=== PATIENT | male | born 1930 | race Caucasian/White ===

== ENCOUNTER 2017-01-26 11:04 | Emergency (ER) | payer MEDICARE, OTHER ==
--- NOTE | 2017-01-26 11:40 | EDM.PDOC ---
ED HPI GENERAL MEDICAL PROBLEM - General Chief Complaint: General Stated Complaint: NOT STEADY ON FEET Time Seen by Provider: 01/26/17 11:20 Source of Information: Reports: Patient History Limitations: Reports: No limitations - History of Present Illness INITIAL COMMENTS - FREE TEXT/NARRATIVE: Patient presents for evaluation and treatment of unsteadiness. He states over the last 2 days he felt unsteady on his feet. His states that he has been running into things. He reports associated lightheadedness. He does wear glasses but has not noticed any vision changes. He denies any chest pain, abdominal pain, headache, nausea, vomiting, fevers, chills, diarrhea or any bloody stools. He was ill with a cold a couple weeks ago but this has since resolved. He reports tinnitus but states is chronic and has not noticed any change. He denies any earaches. - Related Data Allergies Allergy/AdvReac Type Severity Reaction Status Date / Time penicillin V Allergy Hives Verified 01/27/17 07:52 Home Meds: Home Meds Clopidogrel Bisulfate [Clopidogrel] 75 mg PO DAILY PRN 04/12/15 [History] Diltiazem HCl [Diltiazem 24Hr ER] 120 mg PO DAILY 04/12/15 [History] Levothyroxine Sodium [Synthroid] 175 mg PO ASDIRECTED 04/12/15 [History] Metoprolol Tartrate [Lopressor] 12.5 mg PO BID 04/12/15 [History] Simvastatin 10 mg PO BEDTIME PRN 04/12/15 [History] Betamethasone Valerate 45 gm TP DAILY #45 gram 08/21/16 [Rx] Past Medical History HEENT History: Reports: Hard of hearing, Impaired vision Other HEENT History: BILATERAL SENSORINEURAL HEARING LOSS Cardiovascular History: Reports: Afib, High cholesterol, Hypertension, [place], Stents, Other (see below) Other Cardiovascular History: [place] WITH STENTS PLACED 2005 Other Respiratory History: COUGH, URI, DYSPNEA Gastrointestinal History: Reports: Pancreatitis Other Gastrointestinal History: ABDOMINAL DISTENSION Musculoskeletal History: Reports: Amputation Other Neuro History: DIZZINESS INTERMITTENTLY Endocrine/Metabolic History: Reports: Hypothyroidism Other Endocrine/Metabolic History: HYPOTHYROIDISM, Dermatologic History: Reports: Eczema Other Dermatologic History: HX OF HAND LACERATION, PRURITIS, SEBORRHEIC DERMATITIS - Infectious Disease History Infectious Disease History: Reports: Chicken pox, Measles, Mumps - Past Surgical History HEENT Surgical History: Reports: Tonsillectomy GI Surgical History: Reports: Appendectomy, Cholecystectomy, Hernia repair/other Other Musculoskeletal Surgeries/Procedures:: RIGHT REVERSE SHOULDER, R TKA, BILATERAL HIP REPLACEMENTS. Patient had a fall and had a severe subcutaneous hematoma right flank. This became secondarily infected about 14 after injury and required open drainage and secondary intention healing. He was on a wound VAC for approximately 2-1/2 months. Social & Family History - Family History Family Medical History: Noncontributory - Tobacco Use Smoking Status *Q: Never Smoker Second Hand Smoke Exposure: No - Caffeine Use Caffeine Use: Reports: Coffee, Tea Other Caffeine Use: up to 4-5 cups per day on most days - Recreational Drug Use Recreational Drug Use: No Drug Use in Last 12 Months: No - Living Situation & Occupation Living situation: Reports: , with spouse Occupation: retired ED ROS GENERAL - Review of Systems Review Of Systems: See Below Constitutional: Denies: fever, chills HEENT: Denies: Ear pain, Vision change Respiratory: Reports: Shortness of Breath ("little bit") Cardiovascular: Denies: Chest pain GI/Abdominal: Denies: Abdominal pain, Diarrhea, Hematochezia, Melena, Nausea, Vomiting Neurological: Reports: Weakness (reports weakness), Gait Disturbance (reports feeling unsteady and isrunning into things). Denies: Headache, Numbness, Tingling ED EXAM, GENERAL - Physical Exam Exam: See Below Exam Limited By: No limitations General Appearance: alert, WD/WN, no apparent distress Eye Exam: bilateral eye: EOMI, PERRL Ears: normal external exam, normal canal, hearing grossly normal, normal TMs Ear Exam: bilateral ear: TM normal Nose: normal inspection Throat/Mouth: Normal inspection, Normal lips, Normal oropharynx, Normal voice, No airway compromise Neck: normal inspection, full range of motion Respiratory/Chest: no respiratory distress, lungs clear, normal breath sounds Cardiovascular: normal peripheral pulses, regular rate, rhythm, systolic murmur (grade 2 - reports he had an echo preformed several years ago, sees cardiology) Peripheral Pulses: 2+: radial (L), radial (R), posterior tibial (L), posterior tibial (R), dorsalis pedis (L), dorsalis pedis (R) GI/Abdominal: soft, non tender Neurological: alert, oriented, CN II-XII intact, normal cognition, abnormal gait (unsteady, utilizing a cane), other (pattern filer is 5/5 bilaterally, dorsiflesxion 5/5 bilaterally, plantarflexion 5/5 bilaterally; smile is symmetrical, able to wrinkle forehead, no slurred speech, no drift to legs or arms; NIHSS is 0 ) Psychiatric: normal affect, normal mood Skin Exam: Warm, Dry, Normal color EKG INTERPRETATION EKG Date: 01/26/17 Time: 11:45 Rhythm: NSR Rate (beats/min): 57 [place]: normal P-wave: present QRS: normal ST-T: normal QT: normal Comparison: no change EKG Interpretation Comments: NSR at 57 bpm. Q waves in V1 and V2 - old anteroseptal VA. Decreased voltage in limb leads. Borderline p-r interval . Reviewed by myself and Dr. Darby. Course - Vital Signs Last Recorded V/S: Last Vital Signs Temp 36.3 C 01/26/17 11:11 Pulse 67 01/26/17 13:20 Resp 16 01/26/17 13:20 BP 164/82 H 01/26/17 13:20 Pulse Ox 97 01/26/17 13:20 - Orders/Labs/Meds Orders: Active Orders 24 hr Category Date Time Status Blood Glucose Check, Bedside [RC] ONETIME Care 01/26/17 11:36 Active Cardiac Monitoring [RC] . DIRECTED Care 01/26/17 11:36 Active EKG 12 Lead [EKG Documentation Completion] [RC] STAT Care 01/26/17 11:36 Active Chest 1V Frontal [CR] Stat Exams 01/26/17 11:38 Taken Labs: Laboratory Tests 01/26/17 01/26/17 01/26/17 Range/Units 11:39 11:53 11:53 WBC 6.70 (4.23-9.07) K/mm3 RBC 4.20 L (4.63-6.08) M/mm3 Hgb 12.5 L (13.7-17.5) gm/L Hct 36.5 L (40.1-51.0) % MCV 86.9 (79.0-92.2) fl MCH 29.8 (25.7-32.2) pg MCHC 34.2 (32.2-35.5) g/dl RDW Std Deviation 39.8 (35.1-43.9) fL Plt Count 193 (163-337) K/mm3 MPV 9.5 (9.4-12.3) fl Neut % (Auto) 56.2 (34.0-67.9) % Lymph % (Auto) 21.6 L (21.8-53.1) % [place] % (Auto) 10.0 (5.3-12.2) % Eos % (Auto) 11.5 H (0.8-7.0) Baso % (Auto) 0.6 (0.1-1.2) % Neut # (Auto) 3.76 (1.78-5.38) K/mm3 Lymph # (Auto) 1.45 (1.32-3.57) K/mm3 [place] # (Auto) 0.67 (0.30-0.82) K/mm3 Eos # (Auto) 0.77 H (0.04-0.54) K/mm3 Baso # (Auto) 0.04 (0.01-0.08) K/mm3 Sodium 138 (136-145) mEq/L Potassium 5.2 H (3.5-5.1) mEq/L Chloride 103 (98-107) mEq/L Carbon Dioxide 25 (21-32) mEq/L Anion Gap 15.2 H (5-15) BUN 24 H (7-18) mg/dL Creatinine 1.4 H (0.7-1.3) mg/dL Est Cr Clr Drug Dosing 40.34 mL/min Estimated GFR (MDRD) 48 (>60) mL/min BUN/Creatinine Ratio 17.1 (14-18) Glucose 118 H (83-115) mg/dL POC Glucose 119 H (83-110) mg/dL Calcium 9.4 (8.5-10.1) mg/dL Magnesium 2.1 (1.8-2.4) mg/dl Total Bilirubin 0.8 (0.2-1.0) mg/dL AST 14 L (15-37) U/L ALT 24 (16-63) U/L Alkaline Phosphatase 45 L (46-116) U/L Troponin I < 0.017 (0.00-0.056) ng/mL Total Protein 7.1 (6.4-8.2) g/dl Albumin 3.6 (3.4-5.0) g/dl Globulin 3.5 gm/dL Albumin/Globulin Ratio 1.0 (1-2) TSH 3rd Generation 3.185 (0.358-3.74) uIU/mL Urine Color (Yellow) Urine Appearance (Clear) Urine pH (5.0-8.0) Ur Specific [place] (1.005-1.030) Urine Protein (Negative) Urine Glucose (UA) (Negative) Urine Ketones (Negative) Urine Occult Blood (Negative) Urine Nitrite (Negative) Urine Bilirubin (Negative) Urine Urobilinogen (0.2-1.0) Ur Leukocyte Esterase (Negative) Urine RBC (0-5) /hpf Urine WBC (0-5) /hpf Ur Epithelial Cells (0-5) /hpf Urine Bacteria (FEW) /hpf Urine Mucus (FEW) /hpf 01/26/17 Range/Units 12:05 WBC (4.23-9.07) K/mm3 RBC (4.63-6.08) M/mm3 Hgb (13.7-17.5) gm/L Hct (40.1-51.0) % MCV (79.0-92.2) fl MCH (25.7-32.2) pg MCHC (32.2-35.5) g/dl RDW Std Deviation (35.1-43.9) fL Plt Count (163-337) K/mm3 MPV (9.4-12.3) fl Neut % (Auto) (34.0-67.9) % Lymph % (Auto) (21.8-53.1) % [place] % (Auto) (5.3-12.2) % Eos % (Auto) (0.8-7.0) Baso % (Auto) (0.1-1.2) % Neut # (Auto) (1.78-5.38) K/mm3 Lymph # (Auto) (1.32-3.57) K/mm3 [place] # (Auto) (0.30-0.82) K/mm3 Eos # (Auto) (0.04-0.54) K/mm3 Baso # (Auto) (0.01-0.08) K/mm3 Sodium (136-145) mEq/L Potassium (3.5-5.1) mEq/L Chloride (98-107) mEq/L Carbon Dioxide (21-32) mEq/L Anion Gap (5-15) BUN (7-18) mg/dL Creatinine (0.7-1.3) mg/dL Est Cr Clr Drug Dosing mL/min Estimated GFR (MDRD) (>60) mL/min BUN/Creatinine Ratio (14-18) Glucose (83-115) mg/dL POC Glucose (83-110) mg/dL Calcium (8.5-10.1) mg/dL Magnesium (1.8-2.4) mg/dl Total Bilirubin (0.2-1.0) mg/dL AST (15-37) U/L ALT (16-63) U/L Alkaline Phosphatase (46-116) U/L Troponin I (0.00-0.056) ng/mL Total Protein (6.4-8.2) g/dl Albumin (3.4-5.0) g/dl Globulin gm/dL Albumin/Globulin Ratio (1-2) TSH 3rd Generation (0.358-3.74) uIU/mL Urine Color Yellow (Yellow) Urine Appearance Clear (Clear) Urine pH 6.5 (5.0-8.0) Ur Specific [place] 1.015 (1.005-1.030) Urine Protein Trace H (Negative) Urine Glucose (UA) Negative (Negative) Urine Ketones Negative (Negative) Urine Occult Blood Negative (Negative) Urine Nitrite Negative (Negative) Urine Bilirubin Negative (Negative) Urine Urobilinogen 0.2 (0.2-1.0) Ur Leukocyte Esterase Negative (Negative) Urine RBC Not seen (0-5) /hpf Urine WBC 0-5 (0-5) /hpf Ur Epithelial Cells 0-5 (0-5) /hpf Urine Bacteria Few (FEW) /hpf Urine Mucus Not seen (FEW) /hpf - Radiology Interpretation Free Text/Narrative:: chest xray shows no acute intrathoracic process. CT of the head without contrast impression per Dr. Robertson: 1. Senescent change as described. 2. Increased density within the right vertebral and basilar artery most likely representing slow blood flow but difficult to completely exclude thrombosis. MRI study would be needed to exclude this possibility if clinically indicated. 3. No acute parenchymal abnormality is appreciated. CT Results Date: 01/26/17 - Re-Assessments/Exams Free Text/Narrative Re-Assessment/Exam: 01/26/17 12:45 Labs returned. White blood cell count is 6.70, hemoglobin is 12.5 and platelets are 193. TSH is normal at 3.185. Troponin is normal at less than 0.017. sodium is 138, potassium is 5.2 chloride is 103. Anion gap is 15.2. Creatinine is 1.4. Glucose is 118. UA is negative for any glucose, ketones, nitrates, leukocytes or blood. Discussed CT with Dr. Darby. [place] we can manage the patient outpatient. Unable to get MRI today, since it is the weekend. Will order MRA outpatient. 01/26/17 13:03 Discussed test results with the patient. Will have radiology contact him Saturday morning to schedule an MRI and have him followup with his primary care for results. Discussed safety with the patient. He lives at home with his . He does feel safe going home. I encouraged him to rest and take it easy. Return to the ER should his symptoms change or worsen. Departure - Departure Time of Disposition: 13:05 Disposition: Home, Self-Care 01 Condition: fair Clinical Impression: Unsteady Referrals: Valentina Dimas CYTOLOGY TECHNOLOGIST [Primary Care Provider] - Forms: ED Department Discharge Additional Instructions: MRA outpatient ordered. If you do not hear from them Saturday, call [phone] and ask to speak with the radiology department. Follow-up with Valentina after MRA for results. Please return to the ER should your symptoms change or worsen. - My Orders Last 24 Hours: My Active Orders 01/26/17 11:36 Blood Glucose Check, Bedside [RC] ONETIME Cardiac Monitoring [RC] . DIRECTED EKG 12 Lead [EKG Documentation Completion] [RC] STAT 01/26/17 11:38 Chest 1V Frontal [CR] Stat - Assessment/Plan Last 24 Hours: My Active Orders 01/26/17 11:36 Blood Glucose Check, Bedside [RC] ONETIME Cardiac Monitoring [RC] . DIRECTED EKG 12 Lead [EKG Documentation Completion] [RC] STAT 01/26/17 11:38 Chest 1V Frontal [CR] Stat
--- NOTE | 2017-01-26 12:29 | CT ---
CT Technique: Multiple axial sections through the brain were obtained. Intravenous contrast was not utilized. Comparison: Previous MRI brain of 03/16/[address] exam of 05/23/13. Findings: Ventricles along the basal cisterns and sulci convexities are moderately prominent. Diminished density is noted within the periventricular white matter which is compatible with small vessel ischemic demyelination change. 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 Several minimal cortical calcifications are seen which are felt to be incidental. No other abnormal parenchymal densities are seen. Increased density is noted within the right vertebral vessel and basilar artery. This most likely is due to slow vascular flow but difficult to completely exclude thrombosis. Bone window settings were reviewed which shows no acute calvarial abnormality. Mild areas of mucosal thickening seen within the sphenoid and ethmoid sinuses. Impression: 1. Senescent change as described above. 2. Increased density within the right vertebral and basilar artery most likely representing slow blood flow but difficult to completely exclude thrombosis. MRI study would be needed to exclude this possibility if clinically indicated. 3. No acute parenchymal abnormality is appreciated. Diagnostic code #3
[2017-01-26 13:24] VITALS: BP 164/82
--- NOTE | 2017-01-27 16:19 | CR ---
Chest: Portable view of the chest was obtained. Comparison: Previous chest x-ray of 08/21/16. Heart size and mediastinum are normal. Lungs are clear. Right shoulder prosthesis is seen. Bony structures are osteopenic. Impression: 1. Nothing acute is appreciated on portable chest x-ray. Diagnostic code #1
== END 2017-01-26 13:20 | disposition home or self-care (01) ==
LOC: JD.ED 11:04
DX: R26.81 Unsteadiness on feet (principal); H90.5 Unspecified sensorineural hearing loss; I25.2 Old myocardial infarction; I10 Essential (primary) hypertension; Z95.5 Presence of coronary angioplasty implant and graft; I48.91 Unspecified atrial fibrillation; E78.00 Pure hypercholesterolemia, unspecified; E03.9 Hypothyroidism, unspecified; Z96.651 Presence of right artificial knee joint; Z96.643 Presence of artificial hip joint, bilateral; Z79.899 Other long term (current) drug therapy; Z88.0 Allergy status to penicillin
CPT/HCPCS: 36415; 70450; 70450-26; 71010; 71010-26; 80053; 81001; 82962; 83735; 84443; 84484; 85025; 93005; 99283; 99285-25

== ENCOUNTER 2017-01-27 07:45 | Emergency (ER) | payer MEDICARE, OTHER ==
--- NOTE | 2017-01-27 08:32 | EDM.PDOC ---
ED HPI NEURO - General Chief Complaint: Neurological Problem Stated Complaint: [facility] Time Seen by Provider: 01/27/17 07:48 Source of Information: Reports: Patient, EMS History Limitations: Reports: No limitations - History of Present Illness INITIAL COMMENTS - FREE TEXT/NARRATIVE: The patient was brought in by [facility] for bilateral leg weakness, balance issues and a fall. The patient was here yesterday for the same and a complete work up was done that included an EKG, labs, UA and CT of his head. The only abnormality found was on his CT it showed increased density within the right vertebral and basilar artery most likely representing slow blood flow but difficult to completely exclude thrombosis. MRI study would be needed to exclude this possibility if clinically indicated. An outpatient MRA of his brain was ordered for the next couple of days. He was sent home and got worse. He got up to use the bathroom at 3am and he says his legs would not work and he fell. He did not hit his head or hurt his neck. He has no headache, chest pain, shortness of breath, abdominal pain, fever, chills, cough, or troubles urinating or having a bowel movement. He has no hip pain or wrist pain from the fall. He has no numbness in his groin area or low back pain. Timing/Duration: Reports: Day(s): (3) Location (Neuro Complaint): Reports: lower extremity, left, lower extremity, right Quality (Neuro Complaint): Reports: weakness Severity: severe Improves with: Reports: None Worsens with: Reports: None Context, General: Reports: Activity Associated Symptoms: Reports: no other symptoms - Related Data Allergies/ADRs: Allergies Allergy/AdvReac Type Severity Reaction Status Date / Time penicillin V Allergy Hives Verified 01/27/17 07:52 Home Meds: Home Meds Clopidogrel Bisulfate [Clopidogrel] 75 mg PO DAILY PRN 04/12/15 [History] Diltiazem HCl [Diltiazem 24Hr ER] 120 mg PO DAILY 04/12/15 [History] Levothyroxine Sodium [Synthroid] 175 mg PO ASDIRECTED 04/12/15 [History] Metoprolol Tartrate [Lopressor] 12.5 mg PO BID 04/12/15 [History] Simvastatin 10 mg PO BEDTIME PRN 04/12/15 [History] Betamethasone Valerate 45 gm TP DAILY #45 gram 08/21/16 [Rx] Past Medical History HEENT History: Reports: Hard of hearing, Impaired vision Other HEENT History: BILATERAL SENSORINEURAL HEARING LOSS Cardiovascular History: Reports: Afib, High cholesterol, Hypertension, [place], Stents, Other (see below) Other Cardiovascular History: [place] WITH STENTS PLACED 2005 Other Respiratory History: COUGH, URI, DYSPNEA Gastrointestinal History: Reports: Pancreatitis Other Gastrointestinal History: ABDOMINAL DISTENSION Musculoskeletal History: Reports: Amputation Other Neuro History: DIZZINESS INTERMITTENTLY Endocrine/Metabolic History: Reports: Hypothyroidism Other Endocrine/Metabolic History: HYPOTHYROIDISM, Dermatologic History: Reports: Eczema Other Dermatologic History: HX OF HAND LACERATION, PRURITIS, SEBORRHEIC DERMATITIS - Infectious Disease History Infectious Disease History: Reports: Chicken pox, Measles, Mumps - Past Surgical History HEENT Surgical History: Reports: Tonsillectomy GI Surgical History: Reports: Appendectomy, Cholecystectomy, Hernia repair/other Other Musculoskeletal Surgeries/Procedures:: RIGHT REVERSE SHOULDER, R TKA, BILATERAL HIP REPLACEMENTS. Patient had a fall and had a severe subcutaneous hematoma right flank. This became secondarily infected about 14 after injury and required open drainage and secondary intention healing. He was on a wound VAC for approximately 2-1/2 months. Social & Family History - Family History Family Medical History: Noncontributory - Tobacco Use Smoking Status *Q: Never Smoker Second Hand Smoke Exposure: No - Caffeine Use Caffeine Use: Reports: None Other Caffeine Use: up to 4-5 cups per day on most days - Recreational Drug Use Recreational Drug Use: No Drug Use in Last 12 Months: No - Living Situation & Occupation Living situation: Reports: , with spouse Occupation: retired ED ROS GENERAL - Review of Systems Review Of Systems: See Below Constitutional: Reports: no symptoms HEENT: Reports: No symptoms Respiratory: Reports: No Symptoms Cardiovascular: Reports: No symptoms Endocrine: Reports: no symptoms GI/Abdominal: Reports: No symptoms : Reports: no symptoms Musculoskeletal: Reports: other (Bilateral leg weakness) Skin: Reports: no symptoms Neurological: Reports: Weakness (bilateral leg weakness) ED EXAM, NEURO - Physical Exam Exam: See Below Exam Limited By: No limitations General Appearance: alert, no apparent distress Ears: normal external exam Nose: normal inspection Head Exam: atraumatic, normocephalic Neck: normal inspection Respiratory/Chest: no respiratory distress, lungs clear, normal breath sounds Cardiovascular: regular rate, rhythm, no edema, no murmur GI/Abdominal: soft, non tender, no organomegaly Neurological: alert, oriented x 3, other (Bilateral leg weakness with abnormal heal to null with both legs. He still has good sensation and pulses. Good sensation to the groin area.) Back Exam: normal inspection Course - Vital Signs Last Recorded V/S: Last Vital Signs Temp 98 F 01/27/17 07:49 Pulse 68 01/27/17 07:49 Resp 14 01/27/17 07:49 BP 143/76 H 01/27/17 07:49 Pulse Ox 100 01/27/17 07:49 - Re-Assessments/Exams Free Text/Narrative Re-Assessment/Exam: 01/27/17 08:[address] findings and his exam and the fact that he is worse, he may need an MRI done today and neurology consult. I called [facility] and talked with Dr Champagne and he accepted the patient to the ER. Hopefully then can get an MRI done. I will send him by ambulance due to the increased weakness possible CVA versus a peripheral nerve issue such as guillan barre. Departure - Departure Time of Disposition: 08:40 Disposition: DC/Tfer to Acute Hospital 02 Condition: fair Clinical Impression: Bilateral leg weakness, Balance disorder Fall Qualifiers: Encounter type: initial encounter Qualified Code(s): W19.XXXA - Unspecified fall, initial encounter Forms: ED Department Discharge
[2017-01-27 08:53] VITALS: BP 159/79
== END 2017-01-27 08:55 ==
LOC: JD.ED 07:45
DX: R29.898 Other symptoms and signs involving the musculoskeletal system (principal); R26.89 Other abnormalities of gait and mobility; W19.XXXA Unspecified fall, initial encounter; I25.2 Old myocardial infarction; I10 Essential (primary) hypertension; E78.00 Pure hypercholesterolemia, unspecified; E03.9 Hypothyroidism, unspecified; Z90.49 Acquired absence of other specified parts of digestive tract; Z98.890 Other specified postprocedural states; Z79.02 Long term (current) use of antithrombotics/antiplatelets; Z79.899 Other long term (current) drug therapy; Z88.0 Allergy status to penicillin
CPT/HCPCS: 99284; 99285

== ENCOUNTER 2017-09-18 11:37 | Observation (INO) | payer MEDICARE, OTHER ==
[2017-09-18] MEDS ORDERED: Lidocaine 1% with EPINEPHrine 1:100,000 20 ML MDV INJECT ONE (11:39)
--- NOTE | 2017-09-18 12:40 | CT ---
Head CT Technique: Multiple axial sections through the brain were obtained. Intravenous contrast was not utilized. Findings: Comparison: Previous head CT exam of 09/18/17. Findings: Ventricles along the basal cisterns and sulci over the convexities are mildly prominent. Minimal diminished density is noted within the periventricular white matter compatible with small vessel ischemic demyelination change. No other abnormal parenchymal densities are seen. Vascular calcification is seen within the carotid siphon and within the vertebral vessels. Opacified right maxillary sinus is seen Diffuse soft tissue swelling and hematoma is identified within the right frontal scalp and around the right periorbital region. Bone window settings were reviewed which shows no acute calvarial abnormality. Impression: 1. Diffuse soft tissue swelling within the right forehead as well as hematoma. Soft tissue swelling and hematoma also noted around the right orbit. 2. Mild senescent change as described above. No acute intracranial abnormality is seen. Diagnostic code #3
--- NOTE | 2017-09-18 12:42 | CT ---
CT facial bones Technique: Multiple axial sections through the facial bones were obtained. Reconstructed coronal and sagittal images were reviewed. Findings: Soft tissue swelling and hematoma as well as a small amount of soft tissue air is noted within the right forehead and within the right periorbital region. Right and left globes are symmetric in size. Extraocular muscles are symmetric. No retrobulbar abnormality is seen. Opacified right maxillary sinus is seen which is likely chronic. No facial bone fracture is identified. Degenerative change is noted within both temporomandibular joints with joint space narrowing and mild osteophytes. Incidental massiel bullosa noted within the left middle nasal turbinate. Nasal septal deviation is also seen. Mild mucosal thickening is noted within the ethmoid sinuses. Impression: 1. Soft tissue swelling/soft tissue hematoma and soft tissue air within the right forehead and within the right periorbital region. 2. Other findings which are felt to be incidental as described above. 3. No facial bone fracture is identified. Diagnostic code #3
--- NOTE | 2017-09-18 12:42 | CT ---
CT cervical spine Technique: Multiple axial sections through the cervical spine were obtained from above C1 inferiorly to the top of T2. Reconstructed sagittal and coronal images were reviewed. Comparison: Prior CT cervical spine exam of 04/15/13. Findings: Lucent fracture line is identified through the dens. No displacement is seen at this time. Fracture also identified on both sides of the posterior C1 ring. No displacement is seen. Disc space narrowing is seen throughout the cervical spine with diffuse anterior and posterior osteophytes. Diffuse degenerative apophyseal change is seen. No additional fracture is seen. Scattered areas of neural foraminal narrowing are seen. Impression: 1. Nondisplaced fractures involving the posterior ring on both sides of C1. Additional nondisplaced fracture involving the dens of C2. Both these are unstable fractures. 2. Diffuse degenerative change as noted above. Degenerative change is fairly stable from previous CT exam. Diagnostic code #5
[2017-09-18] MEDS ORDERED: Sodium Chloride 0.9% 10 ML Syringe FLUSH PRN (14:14)
--- NOTE | 2017-09-18 18:15 | EDM.PDOC ---
ED HPI GENERAL MEDICAL PROBLEM - General Chief Complaint: Head Injury Stated Complaint: [facility] Time Seen by Provider: 09/18/17 11:38 Source of Information: Reports: Patient, EMS, Provider History Limitations: Reports: No Limitations - History of Present Illness INITIAL COMMENTS - FREE TEXT/NARRATIVE: The patient said he stepped wrong the concrete and he fell and hit the right side of his head. He had no LOC. He has a laceration above his right eye with ecchymosis and edema. He had neck pain. He went to the clinic in [place] and they put him in a c-collar and sent him hear. When he arrived he was alert and orientated and complained of a headache and neck pain. He denies numbness or weakness. He has no chest pain, shortness of breath, abdominal pain, arm pain or leg pain. His tetanus he thinks is up to date. He denies hip pain. He can see good out of his right eye. He did not think he got lightheaded or dizzy when he fell. Onset: Sudden Duration: Hour(s): Location: Reports: Face Quality: Reports: Sharp Severity: Moderate Improves with: Reports: None Worsens with: Reports: None Associated Symptoms: Reports: Headaches. Denies: Confusion, Chest Pain, Cough, Fever/Chills, Nausea/Vomiting Right Anterior Head Pain Score (Numeric/FACES): 3 - Related Data Allergies Allergy/AdvReac Type Severity Reaction Status Date / Time penicillin V Allergy Hives Verified 09/18/17 18:31 Home Meds: Home Meds Clopidogrel Bisulfate [Clopidogrel] 75 mg PO DAILY 04/12/15 [History] Diltiazem HCl [Diltiazem 24Hr ER] 120 mg PO DAILY 04/12/15 [History] Levothyroxine Sodium [Synthroid] 175 mg PO DAILY 04/12/15 [History] Metoprolol Tartrate [Lopressor] 12.5 mg PO BID 04/12/15 [History] Co Q-10 With Pierpont 3 1 tab PO DAILY 09/18/17 [History] Multivitamin [Multivitamins] 1 tab PO DAILY 09/18/17 [History] Past Medical History HEENT History: Reports: Hard of Hearing, Impaired Vision Other HEENT History: BILATERAL SENSORINEURAL HEARING LOSS Cardiovascular History: Reports: Afib, High Cholesterol, Hypertension, [place], Stents, Other (See Below) Other Cardiovascular History: MN WITH STENTS PLACED 2006 Other Respiratory History: COUGH, URI, DYSPNEA Gastrointestinal History: Reports: Pancreatitis Other Gastrointestinal History: ABDOMINAL DISTENSION Musculoskeletal History: Reports: Amputation Other Neuro History: DIZZINESS INTERMITTENTLY Endocrine/Metabolic History: Reports: Hypothyroidism Other Endocrine/Metabolic History: HYPOTHYROIDISM, Dermatologic History: Reports: Eczema Other Dermatologic History: HX OF HAND LACERATION, PRURITIS, SEBORRHEIC DERMATITIS - Infectious Disease History Infectious Disease History: Reports: Chicken Pox, Measles, Mumps - Past Surgical History Cardiovascular Surgical History: Reports: Coronary Artery Stent GI Surgical History: Reports: Appendectomy, Cholecystectomy, Hernia Repair/Other Other Musculoskeletal Surgeries/Procedures:: RIGHT REVERSE SHOULDER, R TKA, BILATERAL HIP REPLACEMENTS. Patient had a fall and had a severe subcutaneous hematoma right flank. This became secondarily infected about 14 after injury and required open drainage and secondary intention healing. He was on a wound VAC for approximately 2-1/2 months. Social & Family History - Family History Family Medical History: Noncontributory - Tobacco Use Smoking Status *Q: Never Smoker Second Hand Smoke Exposure: No - Caffeine Use Caffeine Use: Reports: Coffee Other Caffeine Use: 2-3 cups per day - Alcohol Use Days Per Week of Alcohol Use: 3 Number of Drinks Per Day: 1 Total Drinks Per Week: 3 - Recreational Drug Use Recreational Drug Use: No Drug Use in Last 12 Months: No - Living Situation & Occupation Living situation: Reports: , with Spouse Occupation: Retired ED ROS GENERAL - Review of Systems Review Of Systems: See Below Constitutional: Reports: No Symptoms HEENT: Reports: Other (Edema and laceration above right eye) Respiratory: Reports: No Symptoms Cardiovascular: Reports: No Symptoms Endocrine: Reports: No Symptoms GI/Abdominal: Reports: No Symptoms : Reports: No Symptoms Musculoskeletal: Reports: No Symptoms Skin: Reports: No Symptoms ED EXAM, HEAD INJURY - Physical Exam Exam: See Below Exam Limited By: No Limitations General Appearance: Alert, No Apparent Distress Head: Other (Moderate edema above the right eye with a 3cm laceration) Eyes: Bilateral Eye: EOMI, PERRL Ears: Normal External Exam Nose: Normal Inspection Throat/Mouth: Normal Inspection Neck: Normal Alignment, Normal Inspection, Tenderness Respiratory: No Respiratory Distress, Lungs Clear, Normal Breath Sounds Cardiovascular: Regular Rate, Rhythm, No Edema, No Murmur GI/Abdominal Exam: Soft, Non-Tender, No Organomegaly, No Mass Back Exam: Normal Inspection Extremities: Normal Inspection ED LACERATION/WOUND & ARANZA PROC - Laceration/Wound Repair Right Forehead Lac/wound length in cm: 3 Appearance: Subcutaneous, Linear, Irregular Anesthetic Type: Local Local Anesthesia - Lidocaine (Xylocaine): 1% with EPI Skin Prep: Saline Exploration/Debridement/Repair: Wound Explored, In a Bloodless Field, Explored to Base Closed with: Sutures Suture Size: 4-0 # of Sutures: 7 Suture Type: Nylon, Interrupted, Simple Tetanus Status Addressed: Yes Complications: No EKG INTERPRETATION EKG Date: 09/18/17 Time: 14:41 Rhythm: NSR Rate (Beats/Min): 70 [place]: Normal P-Wave: Present QRS: Normal ST-T: Normal QT: Normal Course - Vital Signs Last Recorded V/S: Last Vital Signs Temp 97.7 F 09/18/17 16:54 Pulse 73 09/18/17 16:54 Resp 15 09/18/17 16:54 BP 114/76 09/18/17 16:54 Pulse Ox 95 09/18/17 16:54 - Orders/Labs/Meds Orders: Active Orders 24 hr Category Date Time Status Cardiac Monitoring [RC] . DIRECTED Care 09/18/17 14:14 Active EKG Documentation Completion [RC] STAT Care 09/18/17 14:15 Active Peripheral IV Care [RC] . DIRECTED Care 09/18/17 14:15 Active Sodium Chloride 0.9% [Saline Flush] Med 09/18/17 14:14 Active 10 ml FLUSH ASDIRECTED PRN Peripheral IV Insertion Adult [OM.PC] Stat Oth 09/18/17 14:14 Ordered Medication Orders Diltiazem HCl (Cardizem Cd) 120 mg PO DAILY [facility] Levothyroxine Sodium (Levothyroxine) 175 mcg PO ACBREAKFAST [facility] Metoprolol Succinate (Toprol Xl) 12.5 mg PO DAILY [facility] Simvastatin (Zocor) 10 mg PO BEDTIME [facility] Sodium Chloride (Saline Flush) 10 ml FLUSH ASDIRECTED PRN PRN Reason: Keep Vein Open Last Admin: 09/18/17 14:27 Dose: 10 ml Labs: Laboratory Tests 09/18/17 09/18/17 09/18/17 Range/Units 14:18 15:00 15:00 WBC Cancelled 13.70 H Corrected WBC Cancelled RBC Cancelled 4.39 L Hgb Cancelled 13.1 L Hct Cancelled 38.6 L MCV Cancelled 87.9 MCH Cancelled 29.8 MCHC Cancelled 33.9 RDW Std Deviation Cancelled 43.5 Plt Count Cancelled 239 MPV Cancelled 9.6 Neut % (Auto) Cancelled 86.0 H Lymph % (Auto) Cancelled 6.3 L Russell % (Auto) Cancelled 6.3 Eos % (Auto) Cancelled 0.9 Baso % (Auto) Cancelled 0.2 Neut # (Auto) Cancelled 11.78 H Lymph # (Auto) Cancelled 0.86 L Russell # (Auto) Cancelled 0.86 H Eos # (Auto) Cancelled 0.13 Baso # (Auto) Cancelled 0.03 Manual Slide Review Cancelled Normal smear Sodium 135 L (136-145) mEq/L Potassium 4.3 (3.5-5.1) mEq/L Chloride 99 (98-107) mEq/L Carbon Dioxide 25 (21-32) mEq/L Anion Gap 15.3 H (5-15) BUN 28 H (7-18) mg/dL Creatinine 1.3 (0.7-1.3) mg/dL Est Cr Clr Drug Dosing 42.64 mL/min Estimated GFR (MDRD) 52 (>60) mL/min BUN/Creatinine Ratio 21.5 H (14-18) Glucose 142 H (83-115) mg/dL Calcium 9.3 (8.5-10.1) mg/dL Total Bilirubin 1.0 (0.2-1.0) mg/dL AST 21 (15-37) U/L ALT 35 (16-63) U/L Alkaline Phosphatase 50 (46-116) U/L Troponin I 0.024 (0.00-0.056) ng/mL Total Protein 7.7 (6.4-8.2) g/dl Albumin 3.8 (3.4-5.0) g/dl Globulin 3.9 gm/dL Albumin/Globulin Ratio 1.0 (1-2) Meds: Medications Generic Name Dose Route Start Last Admin Trade Name Freq PRN Reason Stop Dose Admin Diltiazem HCl 120 mg 09/19/17 09:00 Cardizem Cd PO DAILY [facility] Levothyroxine Sodium 175 mcg 09/19/17 06:00 Levothyroxine PO [facility] Metoprolol Succinate 12.5 mg 09/19/17 09:00 Toprol Xl PO DAILY [facility] Simvastatin 10 mg 09/18/17 21:00 Zocor PO BEDTIME BLAN[facility] Sodium Chloride 10 ml 09/18/17 14:14 09/18/17 14:27 Saline Flush FLUSH 10 ml ASDIRECTED PRN Administration Keep Vein Open Discontinued Medications Generic Name Dose Route Start Last Admin Trade Name Odette PRN Reason Stop Dose Admin Lidocaine/Epinephrine 20 ml 09/18/17 11:39 09/18/17 12:23 Xylocaine 1% With Epinephrine 1:100,000 INJECT 09/18/17 11:40 20 ml ONETIME ONE Administration - Re-Assessments/Exams Free Text/Narrative Re-Assessment/Exam: 09/18/17 18:[address] of his head, cervical spine and facial bones. The CT of his facial bones shows soft tissue swelling/soft tissue hematoma and soft tissue aire within the right forehead and within the right periorbital region. No facial bone fracture is identified. The CT of her head shows diffuse soft tissue swelling within the right forehead as well as hematoma. Soft tissue swelling and hematoma also noted around the right orbit. Mild senescnet changes. NO acute intracranial abnormality is seen. The CT of his facial bones show nondisplaced fractures involving the posterior ring on both sides of C1. Additional nondisplaced fracture involving the dens of C2. Both these are unstable fractures. Diffuse degenerative change. Degenerative change is fairly stable form previous CT exam. I called [facility] and talked with Dr Fish and she was able to see the CTs. She wanted the patient in a [facility] and she can see him in the clinic next week. The patient and his did not feel comfortable coming home. I called Dr Espinoza and he agreed to admit the patient. I sutures his laceration. I also ordered a EKG and it showed a NSR with no acute changes. 09/18/17 18:39 His labs show a elevated WBC of 13.7. His Hgb was low at 13.1. His Na was low at 135. His glucose was 142. His troponin was negative. Departure - Departure Time of Disposition: 18:45 Disposition: Refer to Observation Condition: Fair Clinical Impression: Fall Qualifiers: Encounter type: initial encounter Qualified Code(s): W19.XXXA - Unspecified fall, initial encounter Laceration of face Qualifiers: Encounter type: initial encounter Qualified Code(s): S01.81XA - Laceration without foreign body of other part of head, initial encounter Contusion of forehead Qualifiers: Encounter type: initial encounter Qualified Code(s): S00.83XA - Contusion of other part of head, initial encounter C1 cervical fracture Qualifiers: Encounter type: initial encounter Fracture type: closed Fracture morphology: posterior arch Fracture alignment: nondisplaced Qualified Code(s): S12.031A - Nondisplaced posterior arch fracture of first cervical vertebra, initial encounter for closed fracture C2 cervical fracture Qualifiers: Encounter type: initial encounter Fracture type: closed Fracture morphology: type II dens Fracture alignment: nondisplaced Qualified Code(s): S12.112A - Nondisplaced Type II dens fracture, initial encounter for closed fracture - Discharge Information - My Orders Last 24 Hours: My Active Orders 09/18/17 14:14 Cardiac Monitoring [RC] . DIRECTED Sodium Chloride 0.9% [Saline Flush] 10 ml FLUSH ASDIRECTED PRN Peripheral IV Insertion Adult [OM.PC] Stat 09/18/17 14:15 EKG Documentation Completion [RC] STAT Peripheral IV Care [RC] . DIRECTED - Assessment/Plan Last 24 Hours: My Active Orders 09/18/17 14:14 Cardiac Monitoring [RC] . DIRECTED Sodium Chloride 0.9% [Saline Flush] 10 ml FLUSH ASDIRECTED PRN Peripheral IV Insertion Adult [OM.PC] Stat 09/18/17 14:15 EKG Documentation Completion [RC] STAT Peripheral IV Care [RC] . DIRECTED
[2017-09-18] MEDS: Acetaminophen 325 MG Tab PO PRN (20:55)
[2017-09-18] MEDS ORDERED: Simvastatin 10 MG Tab PO SCH (21:00)
[2017-09-19] MEDS: Acetaminophen 325 MG Tab PO PRN ×2 (04:21→10:22)
--- NOTE | 2017-09-19 07:24 | HP ---
DATE OF ADMISSION: 09/18/2017 CHIEF COMPLAINT: Fall with neck pain. HISTORY OF PRESENT ILLNESS: This 87-year-old gentleman who lives in [place], [place] evidently was walking down the stairs today, actually one stair which he missed, fell and landed on essentially anterolateral aspect of his forehead sustaining a laceration. There was no evidence of loss of consciousness. He got up and because of the bleeding came to the hospital here. In the course of his workup in the emergency room, the laceration was closed. There was a moderate amount of bleeding because of his medically-induced hypocoagulability by clopidogrel. He had the incision repaired by the ER physician with a moderate amount of difficulty. He was then sent for x-rays and a CT of the cervical spine was performed which demonstrate nondisplaced fractures involving the posterior ring on both sides of C1 and additional nondisplaced fracture involving the dens of the C2, both of these which are unstable fractures. He was placed in a cervical collar shortly thereafter. CT of the head revealed diffuse soft tissue swelling in the right forehead area as well as the hematoma and described mild senescent changes. No acute intracranial possibilities found. He also underwent a maxillary facial sinus evaluation by CT, which demonstrated again the soft tissue swelling and hematoma in the area of the right forehead and had no other findings other than that and there was no sign of any facial bone fracture. The patient was evaluated, and since the patient lives in [place] and even though he did not sustain any intracranial injury or loss of consciousness, it was felt wiser by myself and the ER physician as well as the patient's that he be kept here overnight for observation and he is admitted for a 24-hour observation. ALLERGIES: He is insisting he is allergic to penicillin. CURRENT MEDICATIONS: Levothyroxine 175 mg daily, diltiazem 120 mg p.o. daily, and Clopidogrel bisulfate 75 mg p.o. daily. He has taken that today. Simvastatin 10 mg at bedtime, metoprolol 12.5 mg p.o. b.i.d. PAST SURGICAL HISTORY: He has had multiple procedures including hernia repairs, shoulder repairs. He has had right shoulder repair twice. He has had a biliary tree problem with gallstones. DICTATION ENDS HERE. MMODAL /[id number]
[2017-09-19] MEDS ORDERED: Metoprolol Succinate 25 MG Tab.ER PO SCH (09:00)
[2017-09-19] MEDS ORDERED: Diltiazem 120 MG Cap.CD PO SCH (09:00)
--- NOTE | 2017-09-19 13:25 | HP ---
DATE OF ADMISSION: 09/18/2017 ADDENDUM PHYSICAL EXAMINATION: GENERAL: An alert and oriented 87-year-old gentleman with a large bandage on his right forehead, covering the area of laceration. EYES: Pupils are equal and reactive to light and accommodation. VITAL SIGNS: Stable and normal. NECK: There is a neck brace in place covering his C1 and C2 cervical fractures, which have been reviewed with a neurosurgeon in [place], and he has an appointment to see her in the week. CHEST: Clear to auscultation. HEART: Rhythm is regular. No murmurs are heard. ABDOMEN: Soft. No masses and no tenderness. MUSCULOSKELETAL: No sign of any extremity trauma. Good strength in all major muscle groups. NEUROLOGIC: Intact to gross exam. ASSESSMENT: At this point is fall from steps with no significant neuro trauma; laceration of forehead; and fractures of the C1 ring, nondisplaced, and of the C2 ring, dens, which is not displaced. MMODAL /[id number]
[2017-09-19 13:26] VITALS: BP 134/84
[2017-09-19] MEDS ORDERED: Metoprolol Tartrate 25 MG Tab PO SCH (21:00)
--- NOTE | 2017-09-20 01:29 | DISCH ---
ADMISSION DATE: 09/18/2017 DISCHARGE DATE: 09/19/2017 DISCHARGE DIAGNOSES: 1. Right frontal forehead laceration secondary to fall. 2. Nondisplaced ring fractures C1 and dens fracture C2, unstable, but not displaced. COURSE IN HOSPITAL: The patient sustained a fall where he missed a step and fell landing on his forehead. He was on clopidogrel with a bleeding problem and eventually brought from [place] to our facility. He was repaired in the emergency room and his was concerned about him going home, so we kept him overnight on 24-hour hold. He remained stable throughout the night. He was a little sore in the area of the laceration. His dressing is off now and he is not bleeding. He is alert and oriented to time, person, and place and has good bilateral grasps and is able to ambulate in a walker. He has an appointment to see a neurosurgeon in [place] sometime next week, which he does not know what time it is, but that has been arranged. He has a cervical collar in place and understands that should not under any circumstances be removed until he sees the neurosurgeon. He understands all this and so he will be discharged to home today. FINAL DIAGNOSIS: DISCHARGE MEDICATIONS: DIET: ACTIVITY: FOLLOW-UP: CONDITION ON DISCHARGE: ANDREY /[id number]
[2017-09-20] MEDS ORDERED: Multivitamins,Therapeutic Tab PO SCH (09:00)
[2017-09-20] MEDS ORDERED: Clopidogrel 75 MG Tab PO SCH (09:00)
[2017-09-20] MEDS ORDERED: OMEGA PO SCH (09:00)
[2017-09-20] MEDS ORDERED: Diltiazem 120 MG Cap.CD PO SCH (09:00)
[2017-09-20] MEDS ORDERED: CO Q10 PO SCH (09:00)
== END 2017-09-19 13:10 | disposition home or self-care (01) ==
LOC: JD.ED 11:37 → JD.MS 15:52 → UNDOADMOB 15:52 → JD.MS 15:53
PROVIDERS: ADMIT Surgery; ATTEND Surgery
DX: S01.81XA Laceration without foreign body of other part of head, initial encounter (principal); S12.031A Nondisplaced posterior arch fracture of first cervical vertebra, initial encounter for closed fracture; S12.112A Nondisplaced Type II dens fracture, initial encounter for closed fracture; H90.5 Unspecified sensorineural hearing loss; I48.91 Unspecified atrial fibrillation; E78.00 Pure hypercholesterolemia, unspecified; I10 Essential (primary) hypertension; I25.2 Old myocardial infarction; E03.9 Hypothyroidism, unspecified; W19.XXXA Unspecified fall, initial encounter; Z79.01 Long term (current) use of anticoagulants; Z79.899 Other long term (current) drug therapy; Z88.0 Allergy status to penicillin; Z88.8 Allergy status to other drugs, medicaments and biological substances; Z95.5 Presence of coronary angioplasty implant and graft; Z96.643 Presence of artificial hip joint, bilateral; Z90.49 Acquired absence of other specified parts of digestive tract; Z98.890 Other specified postprocedural states
CPT/HCPCS: 12013; 36415; 70450; 70486; 72125; 80053; 84484; 85025; 93005; 99285; A9270; J7050; 93010; G0378

== ENCOUNTER 2017-09-25 15:17 | Observation (INO) | payer MEDICARE, OTHER ==
[2017-09-25] MEDS ORDERED: Sodium Chloride 0.9% 10 ML Syringe FLUSH PRN (17:07)
[2017-09-25] MEDS ORDERED: HYDROmorphone 0.5 MG/0.5 ML Syringe IVPUSH STA (17:36)
--- NOTE | 2017-09-25 18:30 | PCM.HP ---
H&P History of Present Illness - General Date of Service: 09/25/17 Source of Information: Patient, Old Records, Provider, RN History Limitations: Reports: No Limitations - History of Present Illness Initial Comments - Free Text/Narative: Richard Negrete is an 87 yo male who presents to our ED today after falling in [place] and injuring his left leg. 8/10 pain on ED visit. ED provider reports patient was in [place] to have a neurosurgeon visit and fell while at a restaurant. The patient was recently admitted for a fall at home on concrete. This initial fall resulted in a C1 and C2 fracture. The patient was placed in a c-collar and admitted for monitoring by general surgery due to unsteadiness. He did well and was discharged home. He was instructed to follow-up with neurosurgery. The patient reports his neurosurgery appointment will well today and no concerns were noted. He did have an MRI, however this was before this recent fall. The patient did report that he had difficulty after the fall with bearing weight and the neurosurgeon told him to follow-up with the ER here in [place] so he would be closer to home. When he presented to ED was unable to bear weight without extreme pain. He denies LOC or hitting his head. Denies headache, nausea, vomiting, fever, chills, chest pain, shortness of breath, cough, or abdominal pain. He reports that he lost his footing and denies any syncopal episode or other medical causes which led to his fall. He had a very mild fever in the ED were temperature 100.6. Pulse is 83. Respirations 18. Blood pressure 163/77. Pulse ox 99%. EKG was obtained and interpreted by the ED provider as a normal sinus rhythm at a rate of 93 bpm. No ectopy was noted. Labs are obtained: He does have a slight white count 11.85. Hemoglobin was low at 11.9. Hematocrit low at 35.3. Platelet count 236 ,000. Neutrophils were elevated at 70.4%. Sodium was good at 138. Potassium 4.6. Chloride 104. Carbon accident 25. Anion gap 13.6. BUN elevated at 27. Creatinine high at 1.4. EGFR is 48. Glucose is high at 140. Calcium 9.5. Total bilirubin 0.9. Liver enzymes looked good with AST at 24, ALT at 34, alkaline phosphatase of 50. Troponin was negative at less than 0.017. Albumin was good at 3.7. He was given 0.5 mg Dilaudid IV push. An x-ray was obtained of the left hip and pelvis. Dr. Robertson did review it with the ED provider and it was determined he has a nondisplaced fracture of the greater trochanter on the left hip. Dr. Javed, orthopedic surgeon [employer] did review the x-ray as well and agreed is a nondisplaced fracture. He recommended only conservative treatment. He carries a history of: Macular degeneration, A-fib, HLD, HTN, HI with stent placement 2005, arthritis, recent fall with fracture of his C1 and C2 vertebrae - c-collar in place, CVA, depression, hypothyroidism, and eczema. Of note: His surgical history is positive for right reverse shoulder arthroplasty, right TKA , and bilateral [place]. He was never a smoker. He was subsequently admitted to the medical floor on observation status. His CODE STATUS is DNR\DNI. His primary care provider is STUART Mandujano, at the [facility]. Left Hip Pain Score (Numeric/FACES): 1 - Related Data Allergies/Adverse Reactions: Allergies Allergy/AdvReac Type Severity Reaction Status Date / Time penicillin V Allergy Hives Verified 09/18/17 18:31 Home Medications: Home Meds Clopidogrel Bisulfate [Clopidogrel] 75 mg PO DAILY 04/12/15 [History] Diltiazem HCl [Diltiazem 24Hr ER] 120 mg PO DAILY 04/12/15 [History] Levothyroxine Sodium [Synthroid] 175 mcg PO DAILY 04/12/15 [History] Metoprolol Tartrate [Lopressor] 12.5 mg PO BID 04/12/15 [History] Co Q-10 With [place] 3 1 tab PO DAILY 09/18/17 [History] Multivitamin [Multivitamins] 1 tab PO DAILY 09/18/17 [History] Past Medical History HEENT History: Reports: Hard of Hearing, Impaired Vision Other HEENT History: BILATERAL SENSORINEURAL HEARING LOSS Cardiovascular History: Reports: Afib, High Cholesterol, Hypertension, HI, Stents, Other (See Below) Other Cardiovascular History: HI WITH STENTS PLACED 2005 Respiratory History: Reports: None Other Respiratory History: COUGH, URI, DYSPNEA Gastrointestinal History: Reports: Pancreatitis Other Gastrointestinal History: ABDOMINAL DISTENSION Genitourinary History: Reports: None Musculoskeletal History: Reports: Amputation Neurological History: Reports: CVA Other Neuro History: DIZZINESS INTERMITTENTLY Psychiatric History: Reports: None Endocrine/Metabolic History: Reports: Hypothyroidism Other Endocrine/Metabolic History: HYPOTHYROIDISM, Hematologic History: Reports: None Immunologic History: Reports: None Oncologic (Cancer) History: Reports: None Dermatologic History: Reports: Eczema Other Dermatologic History: HX OF HAND LACERATION, PRURITIS, SEBORRHEIC DERMATITIS - Infectious Disease History Infectious Disease History: Reports: Chicken Pox, Measles, Mumps - Past Surgical History Cardiovascular Surgical History: Reports: Coronary Artery Stent GI Surgical History: Reports: Appendectomy, Cholecystectomy, Hernia Repair/Other Male Surgical History: Reports: None Other Musculoskeletal Surgeries/Procedures:: RIGHT REVERSE SHOULDER, R TKA, BILATERAL HIP REPLACEMENTS. Patient had a fall and had a severe subcutaneous hematoma right flank. This became secondarily infected about 14 after injury and required open drainage and secondary intention healing. He was on a wound VAC for approximately 2-1/2 months. Oncologic Surgical History: Reports: None Social & Family History - Family History Family Medical History: Noncontributory - Tobacco Use Smoking Status *Q: Never Smoker Second Hand Smoke Exposure: No - Caffeine Use Caffeine Use: Reports: Coffee Other Caffeine Use: 2-3 cups per day - Alcohol Use Days Per Week of Alcohol Use: 3 Number of Drinks Per Day: 1 Total Drinks Per Week: 3 - Recreational Drug Use Recreational Drug Use: No Drug Use in Last 12 Months: No - Living Situation & Occupation Living situation: Reports: , with Spouse Occupation: Retired H&P Review of Systems - Review of Systems: Review Of Systems: See Below General: Reports: No Symptoms. Denies: Fever, Chills, Malaise, Weakness, Fatigue, Diaphoresis HEENT: Reports: No Symptoms. Denies: Ear Pain, Eye Pain, Headaches, Hearing Changes, Post Nasal Drip, Sore Throat, Vertigo, Visual Changes Pulmonary: Reports: No Symptoms. Denies: Shortness of Breath, Wheezing, Pleuritic Chest Pain, Cough, Sputum Cardiovascular: Reports: No Symptoms. Denies: Chest Pain, Palpitations, Dyspnea on Exertion, Edema, Lightheadedness Gastrointestinal: Reports: No Symptoms. Denies: Abdominal Pain, Constipation, Diarrhea, Difficulty Swallowing, Distension, Nausea, Vomiting Genitourinary: Reports: No Symptoms. Denies: Dysuria, Frequency, Burning, Pain , Urgency Musculoskeletal: Reports: Neck Pain (10/30), Joint Pain (left hip pain - absent now but worsens with movement. ). Denies: Shoulder Pain, Arm Pain, Back Pain, Hand Pain, Leg Pain, Foot Pain, Joint Swelling, Muscle Pain, Muscle Stiffness Skin: Reports: No Symptoms Psychiatric: Reports: No Symptoms. Denies: Confusion, Depression, Mood Lability , Anxiety, Agitation, Hallucinations Neurological: Reports: No Symptoms. Denies: Confusion, Dizziness, Headache, Numbness, Syncope, Tingling, Trouble Speaking, Weakness, Change in Speech Hematologic/Lymphatic: Reports: No Symptoms Immunologic: Reports: No Symptoms Exam - Exam Exam: See Below - Vital Signs Vital Signs: Last Vital Signs Temp 98.6 F 09/25/17 15:42 Pulse 88 09/25/17 15:42 Resp 20 09/25/17 15:42 BP 160/92 H 09/25/17 15:42 Pulse Ox 98 09/25/17 15:42 Weight: 180 lb - Exam Quality Assessment: DVT Prophylaxis General: Alert, Oriented, Cooperative. No: Mild Distress HEENT: Conjunctiva Clear, EACs Clear, EOMI, Hearing Intact, Mucosa Moist & [place] , Nares Patent, Normal Nasal Septum, Posterior Pharynx Clear, Other (bruising to right face and forehead that is healing. ), PERRLA Neck: Supple, Trachea Midline, Other (C-collar in place. ) Lungs: Clear to Auscultation, Normal Respiratory Effort Cardiovascular: Regular Rate, Regular Rhythm, Systolic Murmur GI/Abdominal Exam: Normal Bowel Sounds, Soft, Non-Tender, No Organomegaly, No Distention, No Abnormal Bruit, No Mass, Pelvis Stable (Male) Exam: Deferred Rectal (Males) Exam: Deferred Back Exam: Normal Inspection, Full Range of Motion Extremities: Normal Inspection, No Pedal Edema, Normal Capillary Refill, Leg Pain (upon palpation of left hip ), Limited Range of Motion Peripheral Pulses: 3+: Radial (L), Radial (R), Posterior Tibial (L), Posterior Tibial (R), Dorsalis Pedis (L), Dorsalis Pedis (R) Skin: Warm, Dry, Intact Neurological: Cranial Nerves Intact (Grossly), Strength Equal Bilateral, Sensation Intact Neuro Extensive - Mental Status: Alert, Oriented x3, Normal Mood/Affect, Normal Cognition, Memory Intact Neuro Extensive - Motor, Sensory, Reflexes: CN II-XII Intact (Grossly) Psychiatric: Alert, Normal Affect, Normal Mood - Patient Data Result Diagrams: 09/25/17 17:20 09/25/17 17:20 *Q Meaningful Use (ADM) - VTE *Q VTE Criteria *Q: - Stroke *Q Stroke Criteria *Q: - AMI *Q AMI Criteria *Q: - Problem List (1) Hip fracture SNOMED Code(s): 588096514 ICD Code: S72.009A - FRACTURE OF UNSP PART OF NECK OF UNSP FEMUR, INIT Status: Acute Priority: High Current Visit: Yes Qualifiers: Encounter type: initial encounter Fracture type: closed Laterality: left Qualified Code(s): S72.002A - Fracture of unspecified part of neck of left femur, initial encounter for closed fracture (2) Fall SNOMED Code(s): 9015853 ICD Code: W19.XXXA - UNSPECIFIED FALL, INITIAL ENCOUNTER Status: Acute Priority: High Current Visit: Yes Qualifiers: Encounter type: initial encounter Qualified Code(s): W19.XXXA - Unspecified fall, initial encounter (3) C1 cervical fracture SNOMED Code(s): 037891613 ICD Code: S12.000A - UNSP DISP FX OF FIRST CERVICAL VERTEBRA, INIT FOR CLOS FX Status: Acute Priority: Medium Current Visit: Yes Qualifiers: Encounter type: subsequent encounter Fracture type: closed Fracture morphology: posterior arch Fracture alignment: nondisplaced Fracture healing : with routine healing Qualified Code(s): S12.031D - Nondisplaced posterior arch fracture of first cervical vertebra, subsequent encounter for fracture with routine healing (4) C2 cervical fracture SNOMED Code(s): 324216743 ICD Code: S12.100A - UNSP DISP FX OF SECOND CERVICAL VERTEBRA, INIT FOR CLOS FX Status: Acute Priority: Medium Current Visit: Yes Qualifiers: Encounter type: subsequent encounter Fracture type: closed Fracture morphology: type II dens Fracture alignment: nondisplaced Fracture healing: with routine healing Qualified Code(s): S12.112D - Nondisplaced Type II dens fracture, subsequent encounter for fracture with routine healing (5) Contusion of forehead SNOMED Code(s): 331624487 ICD Code: S00.83XA - CONTUSION OF OTHER PART OF HEAD, INITIAL ENCOUNTER Status: Acute Priority: Medium Current Visit: Yes Qualifiers: Encounter type: subsequent encounter Qualified Code(s): S00.83XD - Contusion of other part of head, subsequent encounter (6) CKD (chronic kidney disease) stage 3, GFR 30-59 ml/min SNOMED Code(s): 117757894 ICD Code: N18.3 - CHRONIC KIDNEY DISEASE, STAGE 3 (MODERATE) Status: Chronic Priority: Medium Current Visit: Yes Problem List Initiated/Reviewed/Updated: Yes Orders Last 24hrs: Active Orders 24 hr Category Date Time Status Heart Healthy Diet [DIET] Diet 09/26/17 Breakfast Active Medication Orders Sodium Chloride (Saline Flush) 10 ml FLUSH ASDIRECTED PRN PRN Reason: Keep Vein Open Last Admin: 09/25/17 17:41 Dose: 10 ml Assessment/Plan Comment:: I/P: Acute: Fracture of left hip -Left hip pain after fall in [place] -Pain worsens when bearing weight -X-ray in ED interpreted by Dr. Robertson shows nondisplaced fracture at the greater trochanter of the left hip -Dr. Cardozo contacted by ED provider and her suggests conservative management -Pain medications as ordered -PT/OT -Follow-up with orthopedics after discharge -Of note: He is on clopidogrel Prior fx/o C1 and C2 vertebrae, contusion of head -2/2 fall at home -was hospitalized for this -stable -Was seen by neurosurgery today after fall -MRI was obtained before fall -No concerns noted -He has f/u set up with neurosurgery already -C-collar remains in place -Continue current treatment plan Chronic: CKD - baseline appears to be creatinine of 1.3-1.4 and eGFR of 48-52. He is at baseline. hx/o HI with stent placement - continue blood thinners hx/o CVA that affected his balance depression - stable hypothyroidism - home meds eczema macular degeneration A-fib - home meds HLD HTN - home meds Plan: Admit to medical floor on observation status CM/SW for discharge planning PT/OT Other orders as indicated above Routine AM labs Home medications as ordered DVT/PE prophylaxis: SCDs and home clopidogrel Code Status: DNR/DNI. His PCP is STUART Mandujano, at [facility]
--- NOTE | 2017-09-25 19:28 | EDM.PDOC ---
ED HPI GENERAL MEDICAL PROBLEM - General Chief Complaint: Neurological Problem Stated Complaint: CANT STAND OR WALK Time Seen by Provider: 09/25/17 15:43 Source of Information: Reports: Patient, Family History Limitations: Reports: No Limitations - History of Present Illness INITIAL COMMENTS - FREE TEXT/NARRATIVE: The patient presents with left hip pain. He fell last week at home on concrete and hit his head. He was seen here and he had a contusion to his forehead with a laceration and a fracture of C1 and C2. I talked the the neurosurgeon at [facility] and she wanted him in a c-collar and she will see him next week. He was admitted to our hospital the night of the fall because he was unsteady when he got up. He did good and he was discharged. He did well and today he went to [facility] and had an MRI. He went to eat after and when they were leaving the restaurant, he stepped wrong and fall and landed on his left hip. He has pain in the hip and putting weight on it makes it worse. He has no headache. He saw the neurosurgeon after and she recommended coming to out ER to get checked. They came here and were seen. He denies fever, chills, cough, chest pain, shortness of breath, abdominal pain, nausea or vomiting. He said he lost his footing. Onset: Sudden Duration: Hour(s): Location: Reports: Lower Extremity, Left (Hip) Quality: Reports: Sharp Severity: Moderate Improves with: Reports: Immobilization Worsens with: Reports: Movement Context: Reports: Activity (Fell while walking in a restaurant) Associated Symptoms: Reports: No Other Symptoms Left Hip Pain Score (Numeric/FACES): 3 - Related Data Allergies Allergy/AdvReac Type Severity Reaction Status Date / Time penicillin V Allergy Hives Verified 09/18/17 18:31 Home Meds: Home Meds Clopidogrel Bisulfate [Clopidogrel] 75 mg PO DAILY 04/12/15 [History] Diltiazem HCl [Diltiazem 24Hr ER] 120 mg PO DAILY 04/12/15 [History] Levothyroxine Sodium [Synthroid] 175 mcg PO DAILY 04/12/15 [History] Metoprolol Tartrate [Lopressor] 12.5 mg PO BID 04/12/15 [History] Co Q-10 With [place] 3 1 tab PO DAILY 09/18/17 [History] Multivitamin [Multivitamins] 1 tab PO DAILY 09/18/17 [History] Past Medical History HEENT History: Reports: Hard of Hearing, Impaired Vision, Macular Degeneration Other HEENT History: BILATERAL SENSORINEURAL HEARING LOSS Cardiovascular History: Reports: Afib, High Cholesterol, Hypertension, ID, Stents, Other (See Below) Other Cardiovascular History: ID WITH STENTS PLACED 2005 Respiratory History: Reports: None, SOB Other Respiratory History: COUGH, URI, DYSPNEA Gastrointestinal History: Reports: Pancreatitis Other Gastrointestinal History: peritonitis in 89 Genitourinary History: Reports: None Musculoskeletal History: Reports: Arthritis, Fracture, Other (See Below) Other Musculoskeletal History: fx of C1-C2 after initial fall Neurological History: Reports: CVA Other Neuro History: last january-affected balance. Psychiatric History: Reports: Depression Endocrine/Metabolic History: Reports: Hypothyroidism Other Endocrine/Metabolic History: HYPOTHYROIDISM, Hematologic History: Reports: Blood Transfusion(s) Immunologic History: Reports: None Oncologic (Cancer) History: Reports: None Dermatologic History: Reports: Eczema Other Dermatologic History: HX OF HAND LACERATION to right hand (1979), PRURITIS , SEBORRHEIC DERMATITIS - Infectious Disease History Infectious Disease History: Reports: Chicken Pox, Measles, Mumps - Past Surgical History Head Surgeries/Procedures: Reports: None HEENT Surgical History: Reports: None Cardiovascular Surgical History: Reports: Coronary Artery Stent Respiratory Surgical History: Reports: None GI Surgical History: Reports: Appendectomy, Cholecystectomy, Hernia Repair/Other Male Surgical History: Reports: None Endocrine Surgical History: Reports: None Neurological Surgical History: Reports: None Other Musculoskeletal Surgeries/Procedures:: RIGHT REVERSE SHOULDER, R TKA, BILATERAL HIP REPLACEMENTS. Patient had a fall and had a severe subcutaneous hematoma right flank. This became secondarily infected about 14 days after injury and required open drainage and secondary intention healing. He was on a wound VAC for approximately 2-1/2 months. Oncologic Surgical History: Reports: None Social & Family History - Family History Family Medical History: Noncontributory - Tobacco Use Smoking Status *Q: Never Smoker Second Hand Smoke Exposure: No - Caffeine Use Caffeine Use: Reports: Coffee Other Caffeine Use: 2-3 cups per day - Alcohol Use Days Per Week of Alcohol Use: 3 Number of Drinks Per Day: 1 Total Drinks Per Week: 3 - Recreational Drug Use Recreational Drug Use: No Drug Use in Last 12 Months: No - Living Situation & Occupation Living situation: Reports: , with Spouse Occupation: Retired Review of Systems - Review of Systems Review Of Systems: See Below Constitutional: Reports: No Symptoms Eyes: Reports: No Symptoms Ears: Reports: No Symptoms Nose: Reports: No Symptoms Mouth/Throat: Reports: No Symptoms Respiratory: Reports: No Symptoms Cardiovascular: Reports: No Symptoms GI/Abdominal: Reports: No Symptoms Genitourinary: Reports: No Symptoms Musculoskeletal: Reports: Other (Left hip pain) ED EXAM, GENERAL - Physical Exam Exam: See Below Exam Limited By: No Limitations General Appearance: Alert, No Apparent Distress Ears: Normal External Exam Nose: Normal Inspection Head: Atraumatic, Normocephalic Neck: Normal Inspection Respiratory/Chest: No Respiratory Distress, Lungs Clear, Normal Breath Sounds Cardiovascular: Regular Rate, Rhythm, No Edema, No Murmur GI/Abdominal: Soft, Non-Tender, No Organomegaly, No Mass Back Exam: Normal Inspection Extremities: Other (Pain upon palpation to the left hip) Neurological: Alert, Oriented, No Motor/Sensory Deficits EKG INTERPRETATION EKG Date: 09/25/17 Time: 17:26 Rhythm: NSR Rate (Beats/Min): 93 [place]: Normal P-Wave: Present QRS: Normal ST-T: Normal QT: Normal Course - Vital Signs Last Recorded V/S: Last Vital Signs Temp 100.6 F 09/25/17 18:12 Pulse 83 09/25/17 18:12 Resp 18 09/25/17 18:12 BP 163/77 H 09/25/17 18:12 Pulse Ox 99 09/25/17 18:12 - Orders/Labs/Meds Orders: Active Orders 24 hr Category Date Time Status Hip Min 2V or 3V w Pelvis Lt [CR] Stat Exams 09/25/17 15:52 Taken Sodium Chloride 0.9% [Saline Flush] Med 09/25/17 17:07 Active 10 ml FLUSH ASDIRECTED PRN Peripheral IV Insertion Adult [OM.PC] Stat Oth 09/25/17 17:07 Ordered Medication Orders Sodium Chloride (Saline Flush) 10 ml FLUSH ASDIRECTED PRN PRN Reason: Keep Vein Open Last Admin: 09/25/17 17:41 Dose: 10 ml Labs: Laboratory Tests 09/25/17 09/25/17 Range/Units 17:20 17:20 WBC 11.85 H (4.23-9.07) K/mm3 RBC 4.01 L (4.63-6.08) M/mm3 Hgb 11.9 L (13.7-17.5) gm/L Hct 35.3 L (40.1-51.0) % MCV 88.0 (79.0-92.2) fl MCH 29.7 (25.7-32.2) pg MCHC 33.7 (32.2-35.5) g/dl RDW Std Deviation 42.4 (35.1-43.9) fL Plt Count 236 (163-337) K/mm3 MPV 9.5 (9.4-12.3) fl Neut % (Auto) 78.4 H (34.0-67.9) % Lymph % (Auto) 8.1 L (21.8-53.1) % [place] % (Auto) 9.1 (5.3-12.2) % Eos % (Auto) 3.8 (0.8-7.0) Baso % (Auto) 0.3 (0.1-1.2) % Neut # (Auto) 9.30 H (1.78-5.38) K/mm3 Lymph # (Auto) 0.96 L (1.32-3.57) K/mm3 [place] # (Auto) 1.08 H (0.30-0.82) K/mm3 Eos # (Auto) 0.45 (0.04-0.54) K/mm3 Baso # (Auto) 0.03 (0.01-0.08) K/mm3 Manual Slide Review Abnormal smear Sodium 138 (136-145) mEq/L Potassium 4.6 (3.5-5.1) mEq/L Chloride 104 (98-107) mEq/L Carbon Dioxide 25 (21-32) mEq/L Anion Gap 13.6 (5-15) BUN 27 H (7-18) mg/dL Creatinine 1.4 H (0.7-1.3) mg/dL Est Cr Clr Drug Dosing 39.59 mL/min Estimated GFR (MDRD) 48 (>60) mL/min BUN/Creatinine Ratio 19.3 H (14-18) Glucose 140 H (83-115) mg/dL Calcium 9.5 (8.5-10.1) mg/dL Total Bilirubin 0.9 (0.2-1.0) mg/dL AST 24 (15-37) U/L ALT 34 (16-63) U/L Alkaline Phosphatase 50 (46-116) U/L Troponin I < 0.017 (0.00-0.056) ng/mL Total Protein 7.4 (6.4-8.2) g/dl Albumin 3.7 (3.4-5.0) g/dl Globulin 3.7 gm/dL Albumin/Globulin Ratio 1.0 (1-2) Meds: Medications Generic Name Dose Route Start Last Admin Trade Name Freq PRN Reason Stop Dose Admin Sodium Chloride 10 ml 09/25/17 17:07 09/25/17 17:41 Saline Flush FLUSH 10 ml ASDIRECTED PRN Administration Keep Vein Open Discontinued Medications Generic Name Dose Route Start Last Admin Trade Name Freq PRN Reason Stop Dose Admin Hydromorphone HCl 0.5 mg 09/25/17 17:36 09/25/17 17:40 Dilaudid IVPUSH 09/25/17 17:37 0.5 mg STAT STA Administration - Re-Assessments/Exams Free Text/Narrative Re-Assessment/Exam: 09/25/17 19:31 I ordered an x-ray of his left hip and pelvis. I had Dr Robertson look at it and it appears he has a nondisplaced fracture of the greater troch on the left hip. I put an IV in and gave him something for pain. His EKG shows a NSR with no acute changes. 09/25/17 19:32 His WBC was elevated at 11.85. His Hgb was low at 11.9. His creatinine was elevated at 1.4. His glucose was elevated at 140. His troponin was negative. I talked to Dr Ortiz our hospitalist and he agreed to admit him. Departure - Departure Time of Disposition: 19:35 Disposition: Refer to Observation Clinical Impression: Unsteady Fall Qualifiers: Encounter type: initial encounter Qualified Code(s): W19.XXXA - Unspecified fall, initial encounter Closed left hip fracture Qualifiers: Encounter type: initial encounter Qualified Code(s): S72.002A - Fracture of unspecified part of neck of left femur, initial encounter for closed fracture - Discharge Information - My Orders Last 24 Hours: My Active Orders 09/25/17 15:52 Hip Min 2V or 3V w Pelvis Lt [CR] Stat 09/25/17 17:07 Sodium Chloride 0.9% [Saline Flush] 10 ml FLUSH ASDIRECTED PRN Peripheral IV Insertion Adult [OM.PC] Stat - Assessment/Plan Last 24 Hours: My Active Orders 09/25/17 15:52 Hip Min 2V or 3V w Pelvis Lt [CR] Stat 09/25/17 17:07 Sodium Chloride 0.9% [Saline Flush] 10 ml FLUSH ASDIRECTED PRN Peripheral IV Insertion Adult [OM.PC] Stat
[2017-09-25] MEDS ORDERED: Docusate Sodium 100 MG Cap PO PRN (20:09)
[2017-09-25] MEDS ORDERED: Polyethylene Glycol 3350 Powder 17 GM Packet PO PRN (20:09)
[2017-09-25] MEDS ORDERED: Bisacodyl 5 MG Tab PO PRN (20:09)
[2017-09-25] MEDS ORDERED: Acetaminophen 325 MG Tab PO PRN (20:09)
[2017-09-25] MEDS ORDERED: Ondansetron 4 MG/2 ML SDV IV PRN (20:09)
[2017-09-25] MEDS ORDERED: HYDROmorphone 0.5 MG/0.5 ML Syringe IVPUSH PRN (20:09)
[2017-09-25] MEDS ORDERED: Ondansetron 4 MG Tab.DIS PO PRN (20:09)
[2017-09-25] MEDS ORDERED: Acetaminophen/HYDROcodone 325-5 MG Tab PO PRN (20:09)
[2017-09-25] MEDS ORDERED: hydrALAZINE 10 MG Tab PO PRN (20:14)
[2017-09-25] MEDS ORDERED: Metoprolol Tartrate 25 MG Tab PO SCH (21:00)
[2017-09-25] MEDS ORDERED: Metoprolol Tartrate 25 MG Tab PO ONE ×2 (21:02→22:30)
[2017-09-26] MEDS ORDERED: diphenhydrAMINE 25 MG Cap PO PRN (06:56)
--- NOTE | 2017-09-26 07:04 | PCM.PN ---
- General Info Date of Service: 09/26/17 Functional Status: Reports: Tolerating Diet, Urinating - Review of Systems General: Reports: Fever (low grade 100.6 on admit, 99 overnight), Weakness, Other (prior CVA with balance problems as residual) HEENT: Reports: No Symptoms. Denies: Headaches Pulmonary: Reports: No Symptoms. Denies: Shortness of Breath, Cough Cardiovascular: Reports: No Symptoms. Denies: Chest Pain, Palpitations Gastrointestinal: Reports: No Symptoms Genitourinary: Reports: No Symptoms Musculoskeletal: Reports: Neck Pain (mild 1/10 on pain scale), Leg Pain Neurological: Reports: Difficulty Walking. Denies: Confusion, Dizziness, Headache, Paresthesia Psychiatric: Reports: No Symptoms - Patient Data Vitals - Most Recent: Last Vital Signs Temp 99.0 F 09/25/17 21:13 Pulse 87 09/25/17 21:17 Resp 18 09/25/17 21:13 BP 149/64 H 09/25/17 21:17 Pulse Ox 97 09/25/17 21:13 Weight - Most Recent: 180 lb Lab Results Last 24 Hours: Laboratory Results - last 24 hr 09/26/17 09/26/17 Range/Units 05:32 05:32 WBC 6.53 (4.23-9.07) K/mm3 RBC 3.89 L (4.63-6.08) M/mm3 Hgb 11.5 L (13.7-17.5) gm/L Hct 34.7 L (40.1-51.0) % MCV 89.2 (79.0-92.2) fl MCH 29.6 (25.7-32.2) pg MCHC 33.1 (32.2-35.5) g/dl RDW Std Deviation 43.5 (35.1-43.9) fL Plt Count 206 (163-337) K/mm3 MPV 9.6 (9.4-12.3) fl Neut % (Auto) 62.6 (34.0-67.9) % Lymph % (Auto) 12.4 L (21.8-53.1) % [place] % (Auto) 11.6 (5.3-12.2) % Eos % (Auto) 12.3 H (0.8-7.0) Baso % (Auto) 0.6 (0.1-1.2) % Neut # (Auto) 4.09 (1.78-5.38) K/mm3 Lymph # (Auto) 0.81 L (1.32-3.57) K/mm3 [place] # (Auto) 0.76 (0.30-0.82) K/mm3 Eos # (Auto) 0.80 H (0.04-0.54) K/mm3 Baso # (Auto) 0.04 (0.01-0.08) K/mm3 Sodium 138 (136-145) mEq/L Potassium 4.5 (3.5-5.1) mEq/L Chloride 103 (98-107) mEq/L Carbon Dioxide 27 (21-32) mEq/L Anion Gap 12.5 (5-15) BUN 24 H (7-18) mg/dL Creatinine 1.2 (0.7-1.3) mg/dL Est Cr Clr Drug Dosing 46.19 mL/min Estimated GFR (MDRD) 57 (>60) mL/min BUN/Creatinine Ratio 20.0 H (14-18) Glucose 119 H (83-115) mg/dL Calcium 9.3 (8.5-10.1) mg/dL Magnesium 1.9 (1.8-2.4) mg/dl Med Orders - Current: Current Medications Acetaminophen (Tylenol) 650 mg PO Q4H PRN PRN Reason: Pain (Mild 1-3)/fever Bisacodyl (Dulcolax) 5 mg PO DAILY PRN PRN Reason: Constipation Clopidogrel Bisulfate (Plavix) 75 mg PO DAILY [facility] Diltiazem HCl (Cardizem Cd) 120 mg PO DAILY [facility] Diphenhydramine HCl (Benadryl) 25 mg PO Q4H PRN PRN Reason: Itching Docusate Sodium (Colace) 100 mg PO BID PRN PRN Reason: Constipation Hydralazine HCl (Apresoline) 10 mg PO Q6H PRN PRN Reason: Hypertension Hydromorphone HCl (Dilaudid) 0.5 mg IVPUSH Q2H PRN PRN Reason: Pain (severe 7-10) Levothyroxine Sodium (Levothyroxine) 175 mcg PO DAILY [facility] Metoprolol Tartrate (Lopressor) 12.5 mg PO BID [facility] Multivitamins (Thera) 1 each PO DAILY [facility] Ondansetron HCl (Zofran Odt) 4 mg PO Q6H PRN PRN Reason: nausea, able to take PO Ondansetron HCl (Zofran) 4 mg IV Q6H PRN PRN Reason: Nausea/Vomiting Oxycodone/Acetaminophen (Percocet 325-5 Mg) 1 tab PO Q4H PRN PRN Reason: Pain Polyethylene Glycol (Miralax) 17 gm PO DAILY PRN PRN Reason: Constipation Senna/Docusate Sodium (Senna Plus) 1 tab PO BID PRN PRN Reason: Constipation Sodium Chloride (Saline Flush) 10 ml FLUSH ASDIRECTED PRN PRN Reason: Keep Vein Open Last Admin: 09/25/17 17:41 Dose: 10 ml Discontinued Medications Hydrocodone Bitart/Acetaminophen ([place] 325-5 Mg) 2 tab PO Q4H PRN PRN Reason: Pain (moderate 4-6) Last Admin: 09/25/17 21:15 Dose: 1 tab Hydromorphone HCl (Dilaudid) 0.5 mg IVPUSH STAT STA Stop: 09/25/17 17:37 Last Admin: 09/25/17 17:40 Dose: 0.5 mg Metoprolol Tartrate (Lopressor) 12.5 mg PO ONETIME ONE Stop: 09/25/17 21:03 Last Admin: 09/25/17 21:17 Dose: 12.5 mg Metoprolol Tartrate (Lopressor) 12.5 mg PO ONETIME ONE Stop: 09/25/17 22:31 Last Admin: 09/25/17 23:11 Dose: Not Given - Exam Quality Assessment: DVT Prophylaxis General: Alert, Oriented, Cooperative, No Acute Distress HEENT: Pupils Equal Neck: Other (c-collar in place) Lungs: Clear to Auscultation, Normal Respiratory Effort, Decreased Breath Sounds (bases) Cardiovascular: Irregular Rhythm (afib) GI/Abdominal Exam: Normal Bowel Sounds, Soft, Non-Tender (Male) Exam: Deferred Extremities: No Pedal Edema, Normal Capillary Refill, Other (CMS + to LE bilat) Peripheral Pulses: 2+: Dorsalis Pedis (L), Dorsalis Pedis (R) Neurological: No New Focal Deficit Psy/Mental Status: Alert, Normal Affect, Normal Mood - Problem List & Annotations (1) Hip fracture SNOMED Code(s): 767450239 Code(s): S72.009A - FRACTURE OF UNSP PART OF NECK OF UNSP FEMUR, INIT Status: Acute Priority: High Current Visit: Yes Qualifiers: Encounter type: initial encounter Fracture type: closed Laterality: left Qualified Code(s): S72.002A - Fracture of unspecified part of neck of left femur, initial encounter for closed fracture (2) Fall SNOMED Code(s): 2133712 Code(s): W19.XXXA - UNSPECIFIED FALL, INITIAL ENCOUNTER Status: Acute Priority: High Current Visit: Yes Qualifiers: Encounter type: initial encounter Qualified Code(s): W19.XXXA - Unspecified fall, initial encounter (3) Balance disorder SNOMED Code(s): 671673939 Code(s): R26.89 - OTHER ABNORMALITIES OF GAIT AND MOBILITY Status: Chronic Priority: Medium Current Visit: Yes (4) C1 cervical fracture SNOMED Code(s): 786693005 Code(s): S12.000A - UNSP DISP FX OF FIRST CERVICAL VERTEBRA, INIT FOR CLOS FX Status: Acute Priority: Medium Current Visit: Yes Qualifiers: Encounter type: subsequent encounter Fracture type: closed Fracture morphology: posterior arch Fracture alignment: nondisplaced Fracture healing : with routine healing Qualified Code(s): S12.031D - Nondisplaced posterior arch fracture of first cervical vertebra, subsequent encounter for fracture with routine healing (5) C2 cervical fracture SNOMED Code(s): 650326177 Code(s): S12.100A - UNSP DISP FX OF SECOND CERVICAL VERTEBRA, INIT FOR CLOS FX Status: Acute Priority: Medium Current Visit: Yes Qualifiers: Encounter type: subsequent encounter Fracture type: closed Fracture morphology: type II dens Fracture alignment: nondisplaced Fracture healing: with routine healing Qualified Code(s): S12.112D - Nondisplaced Type II dens fracture, subsequent encounter for fracture with routine healing (6) Elevated blood sugar SNOMED Code(s): 83731441 Code(s): R73.9 - HYPERGLYCEMIA, UNSPECIFIED Status: Acute Priority: Medium Current Visit: Yes (7) CKD (chronic kidney disease) stage 3, GFR 30-59 ml/min SNOMED Code(s): 914691941 Code(s): N18.3 - CHRONIC KIDNEY DISEASE, STAGE 3 (MODERATE) Status: Chronic Priority: Medium Current Visit: Yes (8) Afib SNOMED Code(s): 42868385 Code(s): I48.91 - UNSPECIFIED ATRIAL FIBRILLATION Status: Chronic Priority: Medium Current Visit: No Qualifiers: Atrial fibrillation type: chronic Qualified Code(s): I48.2 - Chronic atrial fibrillation (9) Hypothyroid SNOMED Code(s): 30207942 Code(s): E03.9 - HYPOTHYROIDISM, UNSPECIFIED Status: Chronic Priority: Medium Current Visit: Yes Qualifiers: Hypothyroidism type: unspecified Qualified Code(s): E03.9 - Hypothyroidism , unspecified - Problem List Review Problem List Initiated/Reviewed/Updated: Yes - My Orders Last 24 Hours: My Active Orders 09/26/17 06:55 Acetaminophen/oxyCODONE [Percocet 325-5 MG] 1 tab PO Q4H PRN 09/26/17 06:56 IS (RT) [RT Incentive Spirometry] [RC] Q2HWA diphenhydrAMINE [Benadryl] 25 mg PO Q4H PRN 09/26/17 06:57 A1C [GLYCOSYLATED HEMOGLOBIN,HGBA1C] [CHEM] Routine TSH [CHEM] Routine - Plan Plan:: I/P: Acute: Fracture of left hip -Left hip pain after fall in [place] -Pain worsens when bearing weight -X-ray in ED interpreted by Dr. Robertson shows nondisplaced fracture at the greater trochanter of the left hip -Dr. Cardozo contacted by ED provider and her suggests conservative management -Pain medications as ordered---itching with [place], will DC try Percocet, add benadryl for itching -PT/OT -Follow-up with orthopedics after discharge -Of note: He is on clopidogrel Prior fx/o C1 and C2 vertebrae, contusion of head -2/2 fall at home -was hospitalized for this -stable -Was seen by neurosurgery today after fall -MRI was obtained before fall -No concerns noted -He has f/u set up with neurosurgery already -C-collar remains in place -Continue current conservative treatment plan Blood sugars elevated at 140 and 119- check A1C today. Chronic: CKD - baseline appears to be creatinine of 1.3-1.4 and eGFR of 48-52. He is at baseline. This morning is improved at 1.2. hx/o ID with stent placement - continue blood thinners, clobidogrel hx/o CVA that affected his balance--PT/OT after discharge depression - stable hypothyroidism - home meds - Will check TSH eczema macular degeneration A-fib - home meds - rate controlled HLD HTN - home meds Plan: Admit to medical floor on observation status CM/SW for discharge planning PT/OT Other orders as indicated above Routine AM labs Home medications as ordered DVT/PE prophylaxis: SCDs and home clopidogrel Code Status: DNR/DNI. His PCP is STUART Mandujano, at [facility] in [place]
--- NOTE | 2017-09-26 07:07 | CR ---
Pelvis and left hip: AP view of the pelvis was obtained as well as AP and frog-leg lateral views of the left hip. Comparison: No prior pelvis or hip exam. Bilateral hip prosthesis are seen. Mild heterotopic bone is seen around both hips. Vascular calcification is seen. Degenerative change is partially visualized within the lower lumbar spine. Nondisplaced fracture is felt to be present within the greater trochanter above the prosthesis of the left hip. Impression: 1. Findings as noted above. 2. Nondisplaced greater trochanter fracture of the left hip above the prosthesis. Diagnostic code #3
[2017-09-26] MEDS: METOPROLOL TARTRATE 25 MG PO SCH ×2 (08:11→21:53)
[2017-09-26] MEDS: Acetaminophen/oxyCODONE 325-5 MG Tab PO PRN ×2 (08:11→14:10)
[2017-09-26] MEDS: Multivitamins,Therapeutic Tab PO SCH (11:08)
[2017-09-26] MEDS: [UNRECOGNIZED DRUG - CODE] PO SCH (11:09)
[2017-09-26] MEDS: CLOPIDOGREL 75 MG PO SCH (11:10)
[2017-09-26] MEDS: Ferrous Sulfate 325 MG Tab PO SCH (14:11)
--- NOTE | 2017-09-26 16:00 | CONS ---
CONSULTING PHYSICIAN: Fredy Cardozo MD DATE OF CONSULTATION: 09/25/2017 REASON FOR CONSULTATION: The orthopedic consultation called for by Dr. Ortiz for evaluation of left hip pain. HISTORY: This is an 87-year-old male who presented to the emergency room with severe left hip pain. He notes that he was up and about when his left leg suddenly gave away suffering a fall onto his left side on 09/25/2017, date of evaluation. The patient notes that he had a severe pain in and around the hip region, was unable to move, get up, or weightbearing on the leg itself and was brought in through the emergency room for evaluation. Of note, the patient also has a secondary injury which happened on approximately 09/18/2017 when he suffered a fall on a cement stairs landing on the cement causing injury to his upper neck region and head and suffered a fracture of C1-C2, nondisplaced. At that time, the patient was sent to [place], evaluated by Neurosurgery, found to be stable fracture, and was placed in a hard collar. The patient notes that after the fall on 09/25/2017 that he had no changes in the cervical neck region or head region as a result of the fall. He notes that his main complaint has been the left hip with severe pain in and around the outside portion of his left hip and also evaluation on 09/26/2017 this morning, the patient notes some anterior right chest pain, which he feels is a cracked rib or possible strain. The patient denies any neurological symptoms in his left lower extremity. He denies any radiation pain, paresthesias to his lower leg. Again, he notes the major pain and focus was in his left hip and also denies any other injuries to the head or neck region with the result of his left hip fall. The patient, at this point, is unable to stand or walk and feels that the pain takes his breath away at times when he does move around and gets severe pain and feels that he is not supporting on his left side at all of any type of attempted weightbearing. PAST MEDICAL HISTORY: ALLERGIES: No known drug allergies. MEDICAL: The patient who has previous medical problems of eczema. He also has problems with head, eyes, ears, nose, throat examination is hard of hearing, some macular degeneration, and impaired vision. His cardiovascular, the patient has a history of atrial fibrillation, cholesterol, hypertension, and also he has had IA and stents. His respiratory system notes no specific pneumonia, asthma history in the past. The gastrointestinal has a previous history of pancreatitis. His genitourinary does not report any prostate problems at this point. SURGICAL HISTORY: The patient has had previous IA stents and also had a previous right shoulder surgery of the shoulder. 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 CURRENT MEDICATIONS: At the time of admission, the patient is on clopidogrel 75 mg, diltiazem, Synthroid, Lopressor, and multivitamins. PHYSICAL EXAMINATION: GENERAL: On evaluation, he is a well-developed, well-nourished, 87-year-old male, in moderate to severe distress. HEAD, EYES, EARS, NOSE AND THROAT: The patient currently is wearing a hard collar for stabilization of the C1-C2 fractures. The patient has positive laceration to the right side of his head just above his eyebrow and a hematoma ecchymosis formation along the right side of his head from the previous injury dating back to approximately 1 week ago. CHEST: Positive pain with palpation along the anterior axillary line on the rib levels approximately rib 8 and 9 and with firm pressure, develops no increased sharp pain, more soft tissue type pain on pressure. ABDOMEN: Soft. GENITOURINARY: Intact. MUSCULOSKELETAL: Examination of the left hip reveals severe pain pressure palpation over the greater trochanteric area. The patient has positive pain with motion of the hip internal and external rotation emanating from the greater trochanteric region. Circulation is intact to the foot. He has positive motor function. RADIOGRAPHIC STUDIES: The radiology evaluation, the patient's x-rays of the left hip show nondisplaced fracture of the greater trochanter. He has 2 bilateral total hip replacements that are intact. Do not appear to have any damage as a result of the fall on either right or left side. They appear stable at this point. No loosening noted. IMPRESSION: 1. Nondisplaced fracture, right greater trochanter. 2. Fracture C1-C2 of the neck. PLAN: 1. Our plan will be for the patient to be stabilized for pain control. 2. He needs physical therapy to start ambulation with a walker, partial weightbearing 30% to 50% and this is as tolerated. If he develops increased pain, we will need to back off on his weightbearing status. 3. The patient after stabilization and discharge, probably will need to go to some assisted care facility for continued recovery and should be managed with the walker for ambulation and the cervical neck collar. 4. We will need orthopedic followup in approximately 7 to 10 days with x-rays of the left when he is checked at his next evaluation. MMODAL /[id number]
--- NOTE | 2017-09-27 07:14 | PCM.PN ---
- General Info Date of Service: 09/27/17 Admission Dx/Problem (Free Text): Fall with periprosthetic hip fx Feeling better this morning, pain to his leg with any movements. Neck with minimal pain. He is anxious to get up and moving with therapy today and for DC to SNF for rehab- he hopes today. Functional Status: Reports: Pain Controlled, Tolerating Diet, Ambulating, Urinating - Review of Systems General: Reports: Weakness, Fatigue HEENT: Reports: No Symptoms Pulmonary: Reports: No Symptoms. Denies: Shortness of Breath, Cough Cardiovascular: Reports: No Symptoms. Denies: Chest Pain, Palpitations, Dyspnea on Exertion Gastrointestinal: Reports: No Symptoms. Denies: Abdominal Pain, Nausea Genitourinary: Reports: No Symptoms Musculoskeletal: Reports: Neck Pain, Leg Pain Skin: Reports: Bruising Neurological: Reports: No Symptoms Psychiatric: Reports: No Symptoms - Patient Data Vitals - Most Recent: Last Vital Signs Temp 99.1 F 09/27/17 03:24 Pulse 73 09/27/17 03:24 Resp 18 09/27/17 03:24 BP 126/70 09/27/17 03:24 Pulse Ox 96 09/27/17 03:24 Weight - Most Recent: 191 lb 3.2 oz I&O - Last 24 Hours: Intake & Output 09/26/17 09/27/17 09/27/17 22:59 06:59 14:59 Intake Total 520 400 Output Total 275 525 Balance 245 -125 Lab Results Last 24 Hours: Laboratory Results - last 24 hr 09/26/17 09/26/17 09/26/17 Range/Units 05:30 05:30 05:30 WBC (4.23-9.07) K/mm3 RBC (4.63-6.08) M/mm3 Hgb (13.7-17.5) gm/L Hct (40.1-51.0) % MCV (79.0-92.2) fl MCH (25.7-32.2) pg MCHC (32.2-35.5) g/dl RDW Std Deviation (35.1-43.9) fL Plt Count (163-337) K/mm3 MPV (9.4-12.3) fl Neut % (Auto) (34.0-67.9) % Lymph % (Auto) (21.8-53.1) % Dyer % (Auto) (5.3-12.2) % Eos % (Auto) (0.8-7.0) Baso % (Auto) (0.1-1.2) % Neut # (Auto) (1.78-5.38) K/mm3 Lymph # (Auto) (1.32-3.57) K/mm3 Dyer # (Auto) (0.30-0.82) K/mm3 Eos # (Auto) (0.04-0.54) K/mm3 Baso # (Auto) (0.01-0.08) K/mm3 Manual Slide Review Hemoglobin A1c 6.30 H (4.50-6.20) % Iron 54 L (65-175) ug/dL TIBC 221 (100-400) ug/dL % Saturation 24 (20-55) % Transferrin 177 L (202-364) mg/dL Vitamin B12 2476 H (193-986) pg/ml Folate 27.6 (8.6-58.9) ng/mL TSH 3rd Generation 5.335 H (0.358-3.74) uIU/mL 09/27/17 Range/Units 05:48 WBC 6.44 (4.23-9.07) K/mm3 RBC 3.72 L (4.63-6.08) M/mm3 Hgb 11.1 L (13.7-17.5) gm/L Hct 33.1 L (40.1-51.0) % MCV 89.0 (79.0-92.2) fl MCH 29.8 (25.7-32.2) pg MCHC 33.5 (32.2-35.5) g/dl RDW Std Deviation 42.8 (35.1-43.9) fL Plt Count 209 (163-337) K/mm3 MPV 9.5 (9.4-12.3) fl Neut % (Auto) 58.7 (34.0-67.9) % Lymph % (Auto) 12.4 L (21.8-53.1) % Dyer % (Auto) 12.6 H (5.3-12.2) % Eos % (Auto) 15.5 H (0.8-7.0) Baso % (Auto) 0.5 (0.1-1.2) % Neut # (Auto) 3.78 (1.78-5.38) K/mm3 Lymph # (Auto) 0.80 L (1.32-3.57) K/mm3 Dyer # (Auto) 0.81 (0.30-0.82) K/mm3 Eos # (Auto) 1.00 H (0.04-0.54) K/mm3 Baso # (Auto) 0.03 (0.01-0.08) K/mm3 Manual Slide Review Normal smear Hemoglobin A1c (4.50-6.20) % Iron (65-175) ug/dL TIBC (100-400) ug/dL % Saturation (20-55) % Transferrin (202-364) mg/dL Vitamin B12 (193-986) pg/ml Folate (8.6-58.9) ng/mL TSH 3rd Generation (0.358-3.74) uIU/mL Med Orders - Current: Current Medications Acetaminophen (Tylenol) 650 mg PO Q4H PRN PRN Reason: Pain (Mild 1-3)/fever Bisacodyl (Dulcolax) 5 mg PO DAILY PRN PRN Reason: Constipation Clopidogrel Bisulfate (Plavix) 75 mg PO DAILY [facility] Last Admin: 09/26/17 11:10 Dose: 75 mg Diltiazem HCl (Cardizem Cd) 120 mg PO DAILY [facility] Last Admin: 09/26/17 11:09 Dose: 120 mg Diphenhydramine HCl (Benadryl) 25 mg PO Q4H PRN PRN Reason: Itching Docusate Sodium (Colace) 100 mg PO BID PRN PRN Reason: Constipation Ferrous Sulfate (Ferrous Sulfate) 325 mg PO DAILY [facility] Last Admin: 09/26/17 14:11 Dose: 325 mg Hydralazine HCl (Apresoline) 10 mg PO Q6H PRN PRN Reason: Hypertension Hydromorphone HCl (Dilaudid) 0.5 mg IVPUSH Q2H PRN PRN Reason: Pain (severe 7-10) Levothyroxine Sodium (Levothyroxine) 175 mcg PO ACBREAKFAST [facility] Metoprolol Tartrate (Lopressor) 25 mg PO Q12HR [facility] Last Admin: 09/26/17 21:53 Dose: 25 mg Multivitamins (Thera) 1 each PO DAILY [facility] Last Admin: 09/26/17 11:08 Dose: 1 each Ondansetron HCl (Zofran Odt) 4 mg PO Q6H PRN PRN Reason: nausea, able to take PO Ondansetron HCl (Zofran) 4 mg IV Q6H PRN PRN Reason: Nausea/Vomiting Oxycodone/Acetaminophen (Percocet 325-5 Mg) 1 tab PO Q4H PRN PRN Reason: Pain Last Admin: 09/26/17 14:10 Dose: 1 tab Polyethylene Glycol (Miralax) 17 gm PO DAILY PRN PRN Reason: Constipation Senna/Docusate Sodium (Senna Plus) 1 tab PO BID PRN PRN Reason: Constipation Sodium Chloride (Saline Flush) 10 ml FLUSH ASDIRECTED PRN PRN Reason: Keep Vein Open Last Admin: 09/25/17 17:41 Dose: 10 ml Discontinued Medications Hydrocodone Bitart/Acetaminophen (Rainier 325-5 Mg) 2 tab PO Q4H PRN PRN Reason: Pain (moderate 4-6) Last Admin: 09/25/17 21:15 Dose: 1 tab Hydromorphone HCl (Dilaudid) 0.5 mg IVPUSH STAT STA Stop: 09/25/17 17:37 Last Admin: 09/25/17 17:40 Dose: 0.5 mg Levothyroxine Sodium (Levothyroxine) 175 mcg PO DAILY [facility] Metoprolol Tartrate (Lopressor) 12.5 mg PO BID [facility] Last Admin: 09/26/17 08:25 Dose: Not Given Metoprolol Tartrate (Lopressor) 12.5 mg PO ONETIME ONE Stop: 09/25/17 21:03 Last Admin: 09/25/17 21:17 Dose: 12.5 mg Metoprolol Tartrate (Lopressor) 12.5 mg PO ONETIME ONE Stop: 09/25/17 22:31 Last Admin: 09/25/17 23:11 Dose: Not Given - Exam Quality Assessment: DVT Prophylaxis General: Alert, Oriented, Cooperative, No Acute Distress HEENT: Pupils Equal, EOMI, Mucous Membr. Moist/[place], Other (hematoma over right eye/eyebrow, sutures removed yesterday, is without s/s of infection today. ) Neck: Supple, Other (collar in place) Lungs: Clear to Auscultation, Normal Respiratory Effort, Decreased Breath Sounds (bases) Cardiovascular: Regular Rate, Regular Rhythm GI/Abdominal Exam: Normal Bowel Sounds, Soft, Non-Tender (Male) Exam: Deferred Extremities: No Pedal Edema, Normal Capillary Refill Peripheral Pulses: 2+: Dorsalis Pedis (L), Dorsalis Pedis (R) Skin: Ecchymosis (multiple areas of ecchymosis s/p falls recently) Neurological: No New Focal Deficit, Strength Equal Bilateral, Sensation Intact, Cranial Nerves Intact Psy/Mental Status: Alert, Normal Affect, Normal Mood - Problem List & Annotations (1) Hip fracture SNOMED Code(s): 758447461 Code(s): S72.009A - FRACTURE OF UNSP PART OF NECK OF UNSP FEMUR, INIT Status: Acute Priority: High Current Visit: Yes Qualifiers: Encounter type: initial encounter Fracture type: closed Laterality: left Qualified Code(s): S72.002A - Fracture of unspecified part of neck of left femur, initial encounter for closed fracture (2) Fall SNOMED Code(s): 0704081 Code(s): W19.XXXA - UNSPECIFIED FALL, INITIAL ENCOUNTER Status: Acute Priority: High Current Visit: Yes Qualifiers: Encounter type: initial encounter Qualified Code(s): W19.XXXA - Unspecified fall, initial encounter (3) Balance disorder SNOMED Code(s): 998706766 Code(s): R26.89 - OTHER ABNORMALITIES OF GAIT AND MOBILITY Status: Chronic Priority: Medium Current Visit: Yes (4) C1 cervical fracture SNOMED Code(s): 683114001 Code(s): S12.000A - UNSP DISP FX OF FIRST CERVICAL VERTEBRA, INIT FOR CLOS FX Status: Acute Priority: Medium Current Visit: Yes Qualifiers: Encounter type: subsequent encounter Fracture type: closed Fracture morphology: posterior arch Fracture alignment: nondisplaced Fracture healing : with routine healing Qualified Code(s): S12.031D - Nondisplaced posterior arch fracture of first cervical vertebra, subsequent encounter for fracture with routine healing (5) C2 cervical fracture SNOMED Code(s): 651219256 Code(s): S12.100A - UNSP DISP FX OF SECOND CERVICAL VERTEBRA, INIT FOR CLOS FX Status: Acute Priority: Medium Current Visit: Yes Qualifiers: Encounter type: subsequent encounter Fracture type: closed Fracture morphology: type II dens Fracture alignment: nondisplaced Fracture healing: with routine healing Qualified Code(s): S12.112D - Nondisplaced Type II dens fracture, subsequent encounter for fracture with routine healing (6) Elevated blood sugar SNOMED Code(s): 78043290 Code(s): R73.9 - HYPERGLYCEMIA, UNSPECIFIED Status: Chronic Priority: Low Current Visit: Yes (7) CKD (chronic kidney disease) stage 3, GFR 30-59 ml/min SNOMED Code(s): 644729500 Code(s): N18.3 - CHRONIC KIDNEY DISEASE, STAGE 3 (MODERATE) Status: Chronic Priority: Medium Current Visit: Yes (8) Afib SNOMED Code(s): 19440791 Code(s): I48.91 - UNSPECIFIED ATRIAL FIBRILLATION Status: Chronic Priority: Medium Current Visit: No Qualifiers: Atrial fibrillation type: chronic Qualified Code(s): I48.2 - Chronic atrial fibrillation (9) Hypothyroid SNOMED Code(s): 46242031 Code(s): E03.9 - HYPOTHYROIDISM, UNSPECIFIED Status: Chronic Priority: Medium Current Visit: Yes Qualifiers: Hypothyroidism type: unspecified Qualified Code(s): E03.9 - Hypothyroidism , unspecified (10) Iron deficiency anemia SNOMED Code(s): 43172525 Code(s): D50.9 - IRON DEFICIENCY ANEMIA, UNSPECIFIED Status: Acute Priority: Medium Current Visit: Yes Qualifiers: Iron deficiency anemia type: unspecified iron deficiency Qualified Code(s) : D50.9 - Iron deficiency anemia, unspecified - Problem List Review Problem List Initiated/Reviewed/Updated: Yes - My Orders Last 24 Hours: My Active Orders 09/26/17 06:55 Acetaminophen/oxyCODONE [Percocet 325-5 MG] 1 tab PO Q4H PRN 09/26/17 06:56 IS (RT) [RT Incentive Spirometry] [RC] Q2HWA diphenhydrAMINE [Benadryl] 25 mg PO Q4H PRN 09/26/17 07:44 OCCULT BLOOD DIAGNOSTIC [OP] Routine 09/26/17 08:23 Consult to Lead Portfolio Manager [Consult to Diabetic Nurse Specialist] [CONS] Routine 09/26/17 09:00 Metoprolol Tartrate [Lopressor] 25 mg PO Q12HR 09/26/17 13:45 Ferrous Sulfate 325 mg PO DAILY 09/27/17 10:45 Levothyroxine 175 mcg PO ACBREAKFAST - Plan Plan:: I/P: Acute: Fracture of left hip -Left hip pain after fall in [place] -X-ray in ED interpreted by Dr. Robertson shows nondisplaced fracture at the greater trochanter of the left hip -Dr. Cardozo contacted by ED provider and her suggests conservative management; formal consult placed. See Ortho notes -Pain medications as ordered---itching with Rainier, will DC try Percocet, add benadryl for itching -PT/OT -Follow-up with orthopedics one week after discharge -Of note: He is on clopidogrel Prior fx/o C1 and C2 vertebrae, contusion of head -2/2 fall at home, was hospitalized for this -stable -Was seen by neurosurgery in [place] after fall -MRI was obtained before fall -No concerns noted per record review -He has f/u set up with neurosurgery already -C-collar to remain in place -Continue current conservative treatment plan Blood sugars elevated at 140 and 119- check A1C= 6.3 -Patient states known prediabetes for years -CDE consult Iron def anemia- hgb in 11 range, slow trend down -Iron level 59, normal B12 and folic acid -Start ferrous sulfate -Awaiting occult stool Chronic: CKD - baseline appears to be creatinine of 1.3-1.4 and eGFR of 48-52. He is at baseline. Now improved at 1.2. 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 eczema macular degeneration A-fib - home meds - rate controlled, no tele concerns HLD HTN - home meds, stable Plan: Admit to medical floor on observation status CM/SW for discharge planning -- all team members recommending SNF. SW working with patient and family. Patient is hopeful for DC to SNF today for further rehab; he is very motivated. PT/OT Other orders as indicated above Routine AM labs Home medications as ordered DVT/PE prophylaxis: SCDs and home clopidogrel Code Status: DNR/DNI. His PCP is STUART Mandujano, at [facility] in [place]
[2017-09-27 08:23] VITALS: BP 140/89
[2017-09-27] MEDS: [UNRECOGNIZED DRUG - CODE] PO SCH (09:53)
[2017-09-27] MEDS: Ferrous Sulfate 325 MG Tab PO SCH (09:54)
[2017-09-27] MEDS: METOPROLOL TARTRATE 25 MG PO SCH (09:58)
[2017-09-27] MEDS: Multivitamins,Therapeutic Tab PO SCH (09:58)
[2017-09-27] MEDS: CLOPIDOGREL 75 MG PO SCH (09:58)
--- NOTE | 2017-09-27 10:10 | PCM.DCSUM1 ---
Discharge Summary - Hospital Course Free Text/Narrative:: nitial Comments - Free Text/Narative: Richard Negrete is an 87 yo male who presents to our ED today after falling in [place] and injuring his left leg. 8/10 pain on ED visit. ED provider reports patient was in [place] to have a neurosurgeon visit and fell while at a restaurant. The patient was recently admitted for a fall at home on concrete. This initial fall resulted in a C1 and C2 fracture. The patient was placed in a c-collar and admitted for monitoring by general surgery due to unsteadiness. He did well and was discharged home. He was instructed to follow-up with neurosurgery. The patient reports his neurosurgery appointment will well today and no concerns were noted. He did have an MRI, however this was before this recent fall. The patient did report that he had difficulty after the fall with bearing weight and the neurosurgeon told him to follow-up with the ER here in [place] so he would be closer to home. When he presented to ED was unable to bear weight without extreme pain. He denies LOC or hitting his head. Denies headache, nausea, vomiting, fever, chills, chest pain, shortness of breath, cough, or abdominal pain. He reports that he lost his footing and denies any syncopal episode or other medical causes which led to his fall. He had a very mild fever in the ED were temperature 100.6. Pulse is 83. Respirations 18. Blood pressure 163/77. Pulse ox 99%. EKG was obtained and interpreted by the ED provider as a normal sinus rhythm at a rate of 93 bpm. No ectopy was noted. Labs are obtained: He does have a slight white count 11.85. Hemoglobin was low at 11.9. Hematocrit low at 35.3. Platelet count 236 ,000. Neutrophils were elevated at 70.4%. Sodium was good at 138. Potassium 4.6. Chloride 104. Carbon accident 25. Anion gap 13.6. BUN elevated at 27. Creatinine high at 1.4. EGFR is 48. Glucose is high at 140. Calcium 9.5. Total bilirubin 0.9. Liver enzymes looked good with AST at 24, ALT at 34, alkaline phosphatase of 50. Troponin was negative at less than 0.017. Albumin was good at 3.7. He was given 0.5 mg Dilaudid IV push. An x-ray was obtained of the left hip and pelvis. Dr. Robertson did review it with the ED provider and it was determined he has a nondisplaced fracture of the greater trochanter on the left hip. Dr. Javed, orthopedic surgeon retail asset protection specialist did review the x-ray as well and agreed is a nondisplaced fracture. He recommended only conservative treatment. He carries a history of: Macular degeneration, A-fib, HLD, HTN, FL with stent placement 2005, arthritis, recent fall with fracture of his C1 and C2 vertebrae - c-collar in place, CVA, depression, hypothyroidism, and eczema. Of note: His surgical history is positive for right reverse shoulder arthroplasty, right TKA , and bilateral [place]. He was never a smoker. He was subsequently admitted to the medical floor on observation status. His CODE STATUS is DNR\DNI. His primary care provider is STUART Mandujano, at the [facility]. - Discharge Data Discharge Date: 09/27/17 (admit date: 09/25/17) Discharge Disposition: DC/Tfer to SNF 03 Condition: Good - Discharge Diagnosis/Problem(s) (1) Hip fracture SNOMED Code(s): 910265517 ICD Code: S72.009A - FRACTURE OF UNSP PART OF NECK OF UNSP FEMUR, INIT Status: Acute Priority: High Qualifiers: Encounter type: initial encounter Fracture type: closed Laterality: left Qualified Code(s): S72.002A - Fracture of unspecified part of neck of left femur, initial encounter for closed fracture (2) Fall SNOMED Code(s): 5614138 ICD Code: W19.XXXA - UNSPECIFIED FALL, INITIAL ENCOUNTER Status: Acute Priority: High Qualifiers: Encounter type: initial encounter Qualified Code(s): W19.XXXA - Unspecified fall, initial encounter (3) Balance disorder SNOMED Code(s): 976146317 ICD Code: R26.89 - OTHER ABNORMALITIES OF GAIT AND MOBILITY Status: Chronic Priority: Medium (4) C1 cervical fracture SNOMED Code(s): 375778325 ICD Code: S12.000A - UNSP DISP FX OF FIRST CERVICAL VERTEBRA, INIT FOR CLOS FX Status: Acute Priority: Medium Qualifiers: Encounter type: subsequent encounter Fracture type: closed Fracture morphology: posterior arch Fracture alignment: nondisplaced Fracture healing : with routine healing Qualified Code(s): S12.031D - Nondisplaced posterior arch fracture of first cervical vertebra, subsequent encounter for fracture with routine healing (5) C2 cervical fracture SNOMED Code(s): 372136752 ICD Code: S12.100A - UNSP DISP FX OF SECOND CERVICAL VERTEBRA, INIT FOR CLOS FX Status: Acute Priority: Medium Qualifiers: Encounter type: subsequent encounter Fracture type: closed Fracture morphology: type II dens Fracture alignment: nondisplaced Fracture healing: with routine healing Qualified Code(s): S12.112D - Nondisplaced Type II dens fracture, subsequent encounter for fracture with routine healing (6) Elevated blood sugar SNOMED Code(s): 17618264 ICD Code: R73.9 - HYPERGLYCEMIA, UNSPECIFIED Status: Chronic Priority: Low (7) CKD (chronic kidney disease) stage 3, GFR 30-59 ml/min SNOMED Code(s): 917719971 ICD Code: N18.3 - CHRONIC KIDNEY DISEASE, STAGE 3 (MODERATE) Status: Chronic Priority: Medium (8) Afib SNOMED Code(s): 00922232 ICD Code: I48.91 - UNSPECIFIED ATRIAL FIBRILLATION Status: Chronic Priority: Medium Qualifiers: Atrial fibrillation type: chronic Qualified Code(s): I48.2 - Chronic atrial fibrillation (9) Hypothyroid SNOMED Code(s): 19689268 ICD Code: E03.9 - HYPOTHYROIDISM, UNSPECIFIED Status: Chronic Priority: Medium Qualifiers: Hypothyroidism type: unspecified Qualified Code(s): E03.9 - Hypothyroidism , unspecified (10) Iron deficiency anemia SNOMED Code(s): 11937772 ICD Code: D50.9 - IRON DEFICIENCY ANEMIA, UNSPECIFIED Status: Acute Priority: Medium Qualifiers: Iron deficiency anemia type: unspecified iron deficiency Qualified Code(s) : D50.9 - Iron deficiency anemia, unspecified - Patient Summary/Data Operative Procedure(s) Performed: None Complications: None Consults: Consultations 09/25/17 20:09 Consult to Case Management [CONS] Routine Consult to Hydrographic Surveyor [CONS] Routine OT Evaluation and Treatment [CONS] Routine PT Evaluation and Treatment [CONS] Routine 09/26/17 08:23 Consult to Algology Teacher [Consult to Diabetic Nurse Specialist] [CONS] Routine Labs Pending at D/C: None Recommended Follow-up Testing/Procedures: Physical and occupational therapy to evaluate and treat. Follow up with Dr. Cardozo, Orthopedics, within one week of discharge Follow up with Dr. Fish, Neurosurgeon as previously scheduled. Follow up with PCP within one week of discharge. Recheck TSH in one month; was slight elevated at 5.3. Planned Operative Procedure(s) after DC: None Hospital Course: I/P: Acute: Fracture of left hip -Left hip pain after fall in [place] -X-ray in ED interpreted by Dr. Robertson shows nondisplaced fracture at the greater trochanter of the left hip -Dr. Cardozo contacted by ED provider and her suggests conservative management; formal consult placed. See Ortho notes -Pain medications as ordered---itching with [place], will DC try Percocet, add benadryl for itching -PT/OT -Follow-up with orthopedics one week after discharge -Of note: He is on clopidogrel Prior fx/o C1 and C2 vertebrae, contusion of head -2/2 fall at home, was hospitalized for this -stable -Was seen by neurosurgery in [place] after fall -MRI was obtained before fall -No concerns noted per record review -He has f/u set up with neurosurgery already -C-collar to remain in place -Continue current conservative treatment plan Blood sugars elevated at 140 and 119- check A1C= 6.3 -Patient states known prediabetes for years -CDE consult Iron def anemia- hgb in 11 range, slow trend down -Iron level 59, normal B12 and folic acid -Start ferrous sulfate -Awaiting occult stool Chronic: CKD - baseline appears to be creatinine of 1.3-1.4 and eGFR of 48-52. He is at baseline. Now improved at 1.2. hx/o FL with stent placement - continue blood thinners, clobidogrel hx/o CVA that affected his balance--PT/OT after discharge depression - stable hypothyroidism - home meds - Will check TSH--elevated at 5.3, recommend recheck in 1 month with PCP to follow prior to increasing levothyroxine dose. eczema macular degeneration A-fib - home meds - rate controlled, no tele concerns HLD HTN - home meds, stable Plan: Admit to medical floor on observation status CM/SW for discharge planning -- all team members recommending SNF. SW working with patient and family. Patient is hopeful for DC to SNF today for further rehab; he is very motivated. PT/OT Other orders as indicated above Routine AM labs Home medications as ordered DVT/PE prophylaxis: SCDs and home clopidogrel Code Status: DNR/DNI. His PCP is STUART Mandujano, at [facility] in [place] - Patient Instructions Diet: Heart Healthy Diet, Drink 8-10+ Glasses/Day Activity: As Tolerated (30-50% weight bearing to left hip; cont PT/OT at SNF) Driving: Do Not Drive Showering/Bathing: May Shower Notify Provider of: Fever, Increased Pain, Nausea and/or Vomiting - Discharge Plan Prescriptions/Med Rec: Metoprolol Tartrate [Lopressor] 25 mg PO Q12HR #60 tablet Acetaminophen [Tylenol] 650 mg PO Q4H PRN #30 tablet PRN Reason: Pain (Mild 1-3)/fever Acetaminophen/oxyCODONE [Percocet 325-5 MG] 1 tab PO Q4H PRN #20 tablet PRN Reason: Pain Ferrous Sulfate 325 mg PO DAILY #30 tablet Home Medications: Home Meds Clopidogrel Bisulfate [Clopidogrel] 75 mg PO DAILY 04/12/15 [History] Diltiazem HCl [Diltiazem 24Hr ER] 120 mg PO DAILY 04/12/15 [History] Levothyroxine Sodium [Synthroid] 175 mcg PO DAILY 04/12/15 [History] Co Q-10 With Elizabeth 3 1 tab PO DAILY 09/18/17 [History] Multivitamin [Multivitamins] 1 tab PO DAILY 09/18/17 [History] Acetaminophen [Tylenol] 650 mg PO Q4H PRN #30 tablet 09/27/17 [Rx] Acetaminophen/oxyCODONE [Percocet 325-5 MG] 1 tab PO Q4H PRN #20 tablet [Rx] Docusate Sodium [Colace] 100 mg PO BID PRN cap 09/27/17 [Rx] Ferrous Sulfate 325 mg PO DAILY #30 tablet 09/27/17 [Rx] Metoprolol Tartrate [Lopressor] 25 mg PO Q12HR #60 tablet 09/27/17 [Rx] Patient Handouts: Hip Fracture Forms: ED Department Discharge Referrals: Breana Fish MD [Ordering Only Provider] - Fredy Cardozo MD [Physician] - - Discharge Summary/Plan Comment DC Time >30 min.: Yes (45) - General Info Date of Service: 09/27/17 Admission Dx/Problem (Free Text: Fall with periprosthetic hip fx Feeling better this morning, pain to his leg with any movements. Neck with minimal pain. He is anxious to get up and moving with therapy today and for DC to SNF for rehab- he hopes today. Functional Status: Reports: Pain Controlled, Tolerating Diet, Ambulating (with assist), Urinating, Incentive Spirometry. Denies: New Symptoms - Review of Systems General: Reports: Weakness (improving) HEENT: Reports: No Symptoms, Other (collar in place) Pulmonary: Reports: No Symptoms Cardiovascular: Reports: No Symptoms Gastrointestinal: Reports: No Symptoms Genitourinary: Reports: No Symptoms Musculoskeletal: Reports: Neck Pain, Leg Pain Skin: Reports: No Symptoms Neurological: Reports: No Symptoms, Difficulty Walking. Denies: Dizziness, Headache, Numbness, Paresthesia, Tingling, Trouble Speaking Psychiatric: Reports: No Symptoms - Patient Data Vitals - Most Recent: Last Vital Signs Temp 98.4 F 09/27/17 08:22 Pulse 73 09/27/17 09:58 Resp 20 09/27/17 08:22 BP 140/89 09/27/17 09:58 Pulse Ox 95 09/27/17 08:22 Weight - Most Recent: 191 lb 3.2 oz I&O - Last 24 hours: Intake & Output 09/26/17 09/27/17 09/27/17 22:59 06:59 14:59 Intake Total 520 400 Output Total 275 525 Balance 245 -125 Lab Results - Last 24 hrs: Laboratory Results - last 24 hr 09/27/17 09/27/17 Range/Units 05:48 05:48 WBC 6.44 (4.23-9.07) K/mm3 RBC 3.72 L (4.63-6.08) M/mm3 Hgb 11.1 L (13.7-17.5) gm/L Hct 33.1 L (40.1-51.0) % MCV 89.0 (79.0-92.2) fl MCH 29.8 (25.7-32.2) pg MCHC 33.5 (32.2-35.5) g/dl RDW Std Deviation 42.8 (35.1-43.9) fL Plt Count 209 (163-337) K/mm3 MPV 9.5 (9.4-12.3) fl Neut % (Auto) 58.7 (34.0-67.9) % Lymph % (Auto) 12.4 L (21.8-53.1) % [place] % (Auto) 12.6 H (5.3-12.2) % Eos % (Auto) 15.5 H (0.8-7.0) Baso % (Auto) 0.5 (0.1-1.2) % Neut # (Auto) 3.78 (1.78-5.38) K/mm3 Lymph # (Auto) 0.80 L (1.32-3.57) K/mm3 [place] # (Auto) 0.81 (0.30-0.82) K/mm3 Eos # (Auto) 1.00 H (0.04-0.54) K/mm3 Baso # (Auto) 0.03 (0.01-0.08) K/mm3 Manual Slide Review Normal smear Sodium 138 (136-145) mEq/L Potassium 4.4 (3.5-5.1) mEq/L Chloride 104 (98-107) mEq/L Carbon Dioxide 26 (21-32) mEq/L Anion Gap 12.4 (5-15) BUN 28 H (7-18) mg/dL Creatinine 1.2 (0.7-1.3) mg/dL Est Cr Clr Drug Dosing 46.19 mL/min Estimated GFR (MDRD) 57 (>60) mL/min BUN/Creatinine Ratio 23.3 H (14-18) Glucose 124 H (83-115) mg/dL Calcium 8.9 (8.5-10.1) mg/dL Magnesium 1.9 (1.8-2.4) mg/dl Med Orders - Current: Current Medications Acetaminophen (Tylenol) 650 mg PO Q4H PRN PRN Reason: Pain (Mild 1-3)/fever Bisacodyl (Dulcolax) 5 mg PO DAILY PRN PRN Reason: Constipation Last Admin: 09/27/17 09:59 Dose: 5 mg Clopidogrel Bisulfate (Plavix) 75 mg PO DAILY [facility] Last Admin: 09/27/17 09:58 Dose: 75 mg Diltiazem HCl (Cardizem Cd) 120 mg PO DAILY [facility] Last Admin: 09/27/17 09:53 Dose: 120 mg Diphenhydramine HCl (Benadryl) 25 mg PO Q4H PRN PRN Reason: Itching Docusate Sodium (Colace) 100 mg PO BID PRN PRN Reason: Constipation Ferrous Sulfate (Ferrous Sulfate) 325 mg PO DAILY [facility] Last Admin: 09/27/17 09:54 Dose: 325 mg Hydralazine HCl (Apresoline) 10 mg PO Q6H PRN PRN Reason: Hypertension Hydromorphone HCl (Dilaudid) 0.5 mg IVPUSH Q2H PRN PRN Reason: Pain (severe 7-10) Levothyroxine Sodium (Levothyroxine) 175 mcg PO ACBREAKFAST [facility] Last Admin: 09/27/17 09:59 Dose: 175 mcg Metoprolol Tartrate (Lopressor) 25 mg PO Q12HR [facility] Last Admin: 09/27/17 09:58 Dose: 25 mg Multivitamins (Thera) 1 each PO DAILY [facility] Last Admin: 09/27/17 09:58 Dose: 1 each Ondansetron HCl (Zofran Odt) 4 mg PO Q6H PRN PRN Reason: nausea, able to take PO Ondansetron HCl (Zofran) 4 mg IV Q6H PRN PRN Reason: Nausea/Vomiting Oxycodone/Acetaminophen (Percocet 325-5 Mg) 1 tab PO Q4H PRN PRN Reason: Pain Last Admin: 09/26/17 14:10 Dose: 1 tab Pneumococcal Polyvalent Vaccine (Pneumovax 23) 0.5 ml IM .ONCE ONE Stop: 09/27/17 10:46 Polyethylene Glycol (Miralax) 17 gm PO DAILY PRN PRN Reason: Constipation Senna/Docusate Sodium (Senna Plus) 1 tab PO BID PRN PRN Reason: Constipation Sodium Chloride (Saline Flush) 10 ml FLUSH ASDIRECTED PRN PRN Reason: Keep Vein Open Last Admin: 09/25/17 17:41 Dose: 10 ml Discontinued Medications Hydrocodone Bitart/Acetaminophen ([place] 325-5 Mg) 2 tab PO Q4H PRN PRN Reason: Pain (moderate 4-6) Last Admin: 09/25/17 21:15 Dose: 1 tab Hydromorphone HCl (Dilaudid) 0.5 mg IVPUSH STAT STA Stop: 09/25/17 17:37 Last Admin: 09/25/17 17:40 Dose: 0.5 mg Levothyroxine Sodium (Levothyroxine) 175 mcg PO DAILY [facility] Metoprolol Tartrate (Lopressor) 12.5 mg PO BID [facility] Last Admin: 09/26/17 08:25 Dose: Not Given Metoprolol Tartrate (Lopressor) 12.5 mg PO ONETIME ONE Stop: 09/25/17 21:03 Last Admin: 09/25/17 21:17 Dose: 12.5 mg Metoprolol Tartrate (Lopressor) 12.5 mg PO ONETIME ONE Stop: 09/25/17 22:31 Last Admin: 09/25/17 23:11 Dose: Not Given - Exam Quality Assessment: Reports: DVT Prophylaxis General: Reports: Alert, Oriented, Cooperative, No Acute Distress, Other ( better spirits; more talkative today) HEENT: Reports: Pupils Equal, Pupils Reactive, Mucous Membr. Moist/[place], Other ( hematoma over right eye; sutures removed yesterday no s/s of infection) Neck: Reports: Supple Lungs: Reports: Clear to Auscultation, Normal Respiratory Effort Cardiovascular: Reports: Regular Rate, Regular Rhythm GI/Abdominal Exam: Normal Bowel Sounds, Soft, Non-Tender (Male) Exam: Deferred Rectal (Males) Exam: Deferred Extremities: Normal Inspection, No Pedal Edema Skin: Reports: Ecchymosis (various areas of ecchymosis due to recent falls) Neurological: Reports: No New Focal Deficit Psy/Mental Status: Reports: Alert, Normal Affect, Normal Mood *Q Meaningful Use (DIS) - VTE *Q VTE Criteria *Q: - Stroke *Q Stroke Criteria *Q: - AMI *Q AMI Criteria *Q:
[2017-09-27] MEDS ORDERED: Pneumococcal Polyvalent-23 Vaccine 0.5 ML SDV IM ONE (10:45)
[2017-09-27] MEDS ORDERED: LEVOTHYROXINE 175 MCG PO SCH (10:45)
--- NOTE | 2017-09-27 15:46 | PCM.SN ---
- Free Text/Narrative Note: Late entry from last night (09/26/17). I was asked by the patient and his to evaluate his prior laceration above his right eye. He was previously admitted for a fall and had 7 sutures placed. Nursing cleaned up some of the dried blood and the wound appears to be healing well. No redness is noted. Pt. does still have large hematoma above right eyebrow. ED note was reviewed and it was reported he should have them removed in 7 days. It has been 8 days since placement. I removed 7 sutures. Wound remained closed and looked good.
== END 2017-09-27 11:45 ==
LOC: JD.ED 15:17 → JD.MS 17:35
PROVIDERS: ADMIT Internal Medicine; ATTEND Internal Medicine
DX: S72.002A Fracture of unspecified part of neck of left femur, initial encounter for closed fracture (principal); S12.031D Nondisplaced posterior arch fracture of first cervical vertebra, subsequent encounter for fracture with routine healing; S12.112D Nondisplaced Type II dens fracture, subsequent encounter for fracture with routine healing; S00.83XD Contusion of other part of head, subsequent encounter; R26.89 Other abnormalities of gait and mobility; R73.9 Hyperglycemia, unspecified; I48.2 Chronic atrial fibrillation; E03.9 Hypothyroidism, unspecified; N18.3 Chronic kidney disease, stage 3 (moderate); I12.9 Hypertensive chronic kidney disease with stage 1 through stage 4 chronic kidney disease, or unspecified chronic kidney disease; E78.00 Pure hypercholesterolemia, unspecified; D50.9 Iron deficiency anemia, unspecified; W19.XXXA Unspecified fall, initial encounter; Z88.0 Allergy status to penicillin; Z79.899 Other long term (current) drug therapy; Z90.49 Acquired absence of other specified parts of digestive tract; Z96.643 Presence of artificial hip joint, bilateral; Z23 Encounter for immunization
CPT/HCPCS: 36415; 73502; 80048; 80053; 82607; 82746; 83036; 83540; 83735; 84443; 84466; 84484; 85025; 93005; 96374; 97110; 97116; 97162; 97167; 97530; 99285; A9270; G0009; G0378; J1170; J7050; 90471; 90732; 93010; 99284

== ENCOUNTER 2020-01-19 13:02 | Inpatient (IN) | payer MEDICARE, OTHER ==
--- NOTE | 2020-01-19 14:11 | EDM.PDOC ---
ED HPI GENERAL MEDICAL PROBLEM - General Chief Complaint: General Stated Complaint: [facility] Time Seen by Provider: 01/19/20 13:02 Source of Information: Reports: Patient, RN History Limitations: Reports: No Limitations - History of Present Illness INITIAL COMMENTS - FREE TEXT/NARRATIVE: A trauma alert was called for this patient, as he fell while on Plavix. Mr. Negrete is a very pleasant 89-year-old gentleman with a past medical history significant for paroxysmal atrial fibrillation, coronary artery disease status-post an [place] and coronary artery stent in 1995, and a stroke, who now presents to the ED after losing his balance and falling onto his buttocks. He is complaining of mild posterior neck pain, otherwise, he states that he is uninjured. The patient reports that he has had a nonproductive cough on and off for the past week, a low-grade fever for the past few days, and that his "lungs hurt" for the past 2 days. He states that both of his legs hurt, all the time, not just with respirations. He states that he had one episode of watery diarrhea this morning, which has since resolved. Otherwise, the patient denies recent chills, dyspnea, chest pain, palpitations, nausea, vomiting, constipation, abdominal pain, urinary symptoms, recent weight gain or weight loss, recent bloody bowel movements or black bowel movements, recent joint aches, headaches, or rashes. Here in the ED, the patient is found to be hemodynamically stable, afebrile, saturating 93% on room air. The patient's PCP is Valentina Dimas NP. His Dielectric Machine Operator is Dr. Dale Richmond. He received an influenza vaccine this season. - Related Data Allergies Allergy/AdvReac Type Severity Reaction Status Date / Time acetaminophen [From [place]] Allergy Itching Verified 01/20/20 18:25 hydrocodone [From [place]] Allergy Itching Verified 01/20/20 18:25 penicillin V Allergy Hives Verified 01/20/20 18:25 Home Meds: Home Meds Clopidogrel Bisulfate [Clopidogrel] 75 mg PO DAILY 04/12/15 [History] Diltiazem HCl [Diltiazem 24Hr ER] 120 mg PO DAILY 04/12/15 [History] Levothyroxine Sodium [Synthroid] 175 mcg PO DAILY 04/12/15 [History] Co Q-10 With [place] 3 1 tab PO DAILY 09/18/17 [History] Multivitamin [Multivitamins] 1 tab PO DAILY 09/18/17 [History] Acetaminophen [Tylenol] 650 mg PO Q4H PRN #30 tablet 09/27/17 [Rx] Docusate Sodium [Colace] 100 mg PO BID PRN cap 09/27/17 [Rx] Ferrous Sulfate 325 mg PO DAILY #30 tablet 09/27/17 [Rx] Metoprolol Tartrate [Lopressor] 25 mg PO Q12HR #60 tablet 09/27/17 [Rx] Past Medical History HEENT History: Reports: Hard of Hearing, Macular Degeneration Cardiovascular History: Reports: Afib (paroxysmal), High Cholesterol, Hypertension, [place] (06/26/1996) Genitourinary History: Reports: Chronic Renal Insuffiency Musculoskeletal History: Reports: Fracture (C1,C2 fx) Neurological History: Reports: CVA Psychiatric History: Reports: Depression Endocrine/Metabolic History: Reports: Hypothyroidism Dermatologic History: Reports: Eczema - Infectious Disease History Infectious Disease History: Reports: Chicken Pox, Measles, Mumps - Past Surgical History HEENT Surgical History: Reports: Cataract Surgery (bilateral), Tonsillectomy ( Nov 1957) Cardiovascular Surgical History: Reports: Coronary Artery Stent (x 1, 06/26/1996) GI Surgical History: Reports: Appendectomy, Cholecystectomy (2005), Hernia, Abdominal (x 2) Musculoskeletal Surgical History: Reports: Hip Replacement (bilateral), Knee Replacement (right), Shoulder Surgery (right, reverse arthroplasty) Social & Family History - Family History Family Medical History: Noncontributory - Tobacco Use Smoking Status *Q: Never Smoker - Caffeine Use Caffeine Use: Reports: Coffee Other Caffeine Use: 2-3 cups per day - Alcohol Use Alcohol Use History: Yes Alcohol Use Frequency: Rarely - Recreational Drug Use Recreational Drug Use: No - Living Situation & Occupation Living situation: Reports: ( at home), Assisted Living ([facility]) Occupation: Retired ED ROS GENERAL - Review of Systems Review Of Systems: Comprehensive ROS is negative, except as noted in HPI. ED EXAM, GENERAL - Physical Exam Exam: See Below Exam Limited By: No Limitations General Appearance: Alert, WD/WN, No Apparent Distress Eye Exam: Bilateral Eye: EOMI, Normal Inspection Ears: Normal External Exam, Normal Canal, Normal TMs, Hearing Loss Nose: Normal Inspection, Normal Mucosa, No Blood Throat/Mouth: Normal Inspection, Normal Lips, Normal Voice, No Airway Compromise Head: Atraumatic, Normocephalic Neck: Supple, Tender Midline (mild, inferior cervical spine). No: Lymphadenopathy (L), Lymphadenopathy (R) Respiratory/Chest: No Respiratory Distress, Lungs Clear, Normal Breath Sounds, No Accessory Muscle Use. No: Decreased Breath Sounds, Crackles, Rhonchi, Wheezing, Stridor, Prolonged Expiration Cardiovascular: Normal Peripheral Pulses, No Edema, No Gallop, No JVD, No Murmur , No Rub, Tachycardia (regular) Peripheral Pulses: 4+: Radial (L), Radial (R) GI/Abdominal: Normal Bowel Sounds, Soft, Non-Tender, No Organomegaly, No Distention, No Abnormal Bruit, No Mass (Male) Exam: Deferred Rectal (Males) Exam: Deferred Back Exam: Normal Inspection, Full Range of Motion, NT Extremities: Normal Inspection, Normal Range of Motion, No Pedal Edema, Normal Capillary Refill Neurological: Alert, Oriented, CN II-XII Intact, Normal Cognition, No Motor/ Sensory Deficits Psychiatric: Normal Affect Skin Exam: Warm, Dry, Intact, Normal Color, No Rash EKG INTERPRETATION EKG Date: 01/19/20 Time: 14:48 Rhythm: Other (Sinus tachycardia) Rate (Beats/Min): 114 [place]: Normal P-Wave: Enlarged ([place]. 1st degree AVB) QRS: Normal ST-T: Depressed ([address] depression V5 only. No T-wave inversions.) QT: Normal Comparison: No Change (09/25/2017) Course - Vital Signs Last Recorded V/S: Last Vital Signs Temp 36.6 C 01/20/20 16:26 Pulse 73 01/20/20 16:26 Resp 16 01/20/20 16:26 BP 104/78 01/20/20 16:26 Pulse Ox 96 01/20/20 16:26 Orthostatic Blood Pressure [ 140/80 Sitting] Orthostatic Blood Pressure [ 141/71 Supine] - Orders/Labs/Meds Orders: Medication Orders Lactated Ringer's (Ringers, Lactated) 1,000 mls @ 75 mls/hr IV ASDIRECTED BLANCA Stop: 01/21/20 17:44 Last Admin: 01/20/20 17:52 Dose: 75 mls/hr Labs: Laboratory Tests 01/19/20 01/19/20 01/19/20 Range/Units 14:38 14:38 14:38 WBC 20.65 H (4.23-9.07) K/mm3 RBC 4.10 L (4.63-6.08) M/mm3 Hgb 12.2 L (13.7-17.5) gm/dl Hct 36.6 L (40.1-51.0) % MCV 89.3 (79.0-92.2) fl MCH 29.8 (25.7-32.2) pg MCHC 33.3 (32.2-35.5) g/dl RDW Std Deviation 43.2 (35.1-43.9) fL Plt Count 205 (163-337) K/mm3 MPV 9.8 (9.4-12.3) fl Neutrophils % (Manual) 87 H (40-60) % Band Neutrophils % 3 (0-10) % Lymphocytes % (Manual) 6 L (20-40) % Atypical Lymphs % 0 % Monocytes % (Manual) 4 (2-10) % Eosinophils % (Manual) 0 L (0.8-7.0) % Basophils % (Manual) 0 L (0.2-1.2) Platelet Estimate Adequate RBC Morph Comment Normal Sodium 137 (136-145) mEq/L Potassium 4.4 (3.5-5.1) mEq/L Chloride 99 (98-107) mEq/L Carbon Dioxide 23 (21-32) mEq/L Anion Gap 19.4 H (5-15) BUN 27 H (7-18) mg/dL Creatinine 1.5 H (0.7-1.3) mg/dL Est Cr Clr Drug Dosing TNP Estimated GFR (MDRD) 44 (>60) mL/min BUN/Creatinine Ratio 18.0 (14-18) Glucose 159 H (83-115) mg/dL Calcium 9.4 (8.5-10.1) mg/dL Magnesium 1.6 L (1.8-2.4) mg/dl Ferritin (26-388) ng/ml Total Bilirubin 2.1 H (0.2-1.0) mg/dL AST 14 L (15-37) U/L ALT 30 (16-63) U/L Alkaline Phosphatase 57 (46-116) U/L Lactate Dehydrogenase 140 (85-227) U/L Troponin I < 0.017 (0.00-0.056) ng/mL C-Reactive Protein 4.8 H* (<1.0) mg/dL Total Protein 7.8 (6.4-8.2) g/dl Albumin 4.0 (3.4-5.0) g/dl Globulin 3.8 gm/dL Albumin/Globulin Ratio 1.1 (1-2) 01/19/20 Range/Units 14:38 WBC (4.23-9.07) K/mm3 RBC (4.63-6.08) M/mm3 Hgb (13.7-17.5) gm/dl Hct (40.1-51.0) % MCV (79.0-92.2) fl MCH (25.7-32.2) pg MCHC (32.2-35.5) g/dl RDW Std Deviation (35.1-43.9) fL Plt Count (163-337) K/mm3 MPV (9.4-12.3) fl Neutrophils % (Manual) (40-60) % Band Neutrophils % (0-10) % Lymphocytes % (Manual) (20-40) % Atypical Lymphs % % Monocytes % (Manual) (2-10) % Eosinophils % (Manual) (0.8-7.0) % Basophils % (Manual) (0.2-1.2) Platelet Estimate RBC Morph Comment Sodium (136-145) mEq/L Potassium (3.5-5.1) mEq/L Chloride (98-107) mEq/L Carbon Dioxide (21-32) mEq/L Anion Gap (5-15) BUN (7-18) mg/dL Creatinine (0.7-1.3) mg/dL Est Cr Clr Drug Dosing Estimated GFR (MDRD) (>60) mL/min BUN/Creatinine Ratio (14-18) Glucose (83-115) mg/dL Calcium (8.5-10.1) mg/dL Magnesium (1.8-2.4) mg/dl Ferritin 562 H (26-388) ng/ml Total Bilirubin (0.2-1.0) mg/dL AST (15-37) U/L ALT (16-63) U/L Alkaline Phosphatase (46-116) U/L Lactate Dehydrogenase (85-227) U/L Troponin I (0.00-0.056) ng/mL C-Reactive Protein (<1.0) mg/dL Total Protein (6.4-8.2) g/dl Albumin (3.4-5.0) g/dl Globulin gm/dL Albumin/Globulin Ratio (1-2) Meds: Medications Generic Name Dose Route Start Last Admin Trade Name Freq PRN Reason Stop Dose Admin Lactated Ringer's 1,000 mls @ 75 mls/hr 01/20/20 15:45 01/20/20 17:52 Ringers, Lactated IV 01/21/20 17:44 75 mls/hr ASDIRECTED BLANCA Administration Discontinued Medications Generic Name Dose Route Start Last Admin Trade Name Freq PRN Reason Stop Dose Admin Acetaminophen 975 mg 01/19/20 21:35 01/19/20 21:41 Tylenol PO 01/19/20 21:36 Not Given ONETIME ONE Acetaminophen 975 mg 01/19/20 21:40 01/19/20 21:48 Tylenol PO 01/19/20 21:41 975 mg NOW ONE Administration Acetaminophen Confirm 01/19/20 21:43 01/19/20 21:48 Tylenol Administered 01/19/20 21:44 Not Given Dose 975 mg .ROUTE .STK-MED ONE Magnesium Sulfate 2 gm/ Premix 50 mls @ 50 mls/hr 01/19/20 16:28 01/19/20 16: 56 IV 01/19/20 17:27 50 mls/hr ONETIME ONE Administration Ondansetron HCl 4 mg 01/19/20 21:37 01/19/20 21:47 Zofran IVPUSH 01/19/20 21:38 4 mg ONETIME ONE Administration - Re-Assessments/Exams Free Text/Narrative Re-Assessment/Exam: 01/19/20 14:09 With respect to the patient's fall, he states that he fell due to a number of reasons, including getting tripped up on his own feet. It does not sound as though he was lightheaded or vertiginous prior to or after his fall, and the patient states that he "absolutely not" passed out. Nevertheless, I have ordered orthostatics, a troponin, and an ECG. With respect to his mild neck pain, new since his fall, I have ordered a CT of his cervical spine, just to make sure that no significant damage occurred. With respect to the patient's low-grade fever, dry cough, and lung pain, his symptoms are a potential concern for COVID-19, therefore I have ordered a CBC, CMP, magnesium level, LDH, ferritin, CRP, and a chest x-ray. 01/19/20 15:15 2-view chest x-ray is read by Dr. Robertson as: 1. Findings as noted above. 2. Nothing acute is appreciated on 2 view chest x-ray. CT of the cervical spine without contrast as read by Dr. Robertson as: 1. Stable degenerative change throughout the cervical spine which has been described on previous cervical spine report. 2. Dens fracture with fracture line slightly increased from prior exam as noted above. 3. No other acute abnormality is appreciated. The CT scan is compared to 12/26/2017. The body of the report reads: Dens fracture is seen. This was noted on prior exam which shows fracture widening by about 3.6 mm on current study which measured 2.0 mm on prior exam. Of note, the CT from 12/26/2017 was obtained as an outpatient; he was not seen in the ED at that time. 01/19/20 15:22 Although this fracture is old, I believe it would be prudent to discuss the case with a Neurosurgeon. The patient prefers [facility]. 01/19/20 15:30 Case discussed with Lore at [facility] at 15:23. Case then discussed with Dr. Urbina, Neurosurgeon at [facility], at 15:27. He reviewed the CT scan and it was that the fracture is old and healed. If the patient is having significant pain, which she is not, we could place the patient into a cervical collar for 2 weeks, followed by flexion and extension x-rays. If his pain is minimal, which it appears to be, no treatment is necessary at this time, however, if his pain creases, the patient can return to the ED for a cervical collar, again, followed by flexion and extension x- rays. He opined that it would be preferable if the patient does not require a cervical collar, as these often lead to accidental falls in the elderly. 01/19/20 16:25 Notified by Vishnu JEWELL that the patient refused to stand for orthostatics, however, his blood pressure did not significantly drop, nor did his heart rate significantly increased, between supine and sitting. The patient CBC is remarkable for a WBC count elevated at 20.65, but with only 3 % bandemia. His ANC is 87, his ALC is 6. His H/H is depressed at 12.2/36.6, with the remainder of his CBC being unremarkable. His CMP is remarkable for an anion gap mildly elevated at 19.4, but with a bicarbonate normal at 23. His BUN/Cr is elevated at 27/1.5. His TBil is elevated at 2.1, with the remainder of his CMP being unremarkable. His magnesium level is depressed at 1.6. His troponin is undetectably low. His LDH is within normal limits at 140. His ferritin is elevated at 562. His CRP is mildly elevated at 4.8. The patient's BUN/Cr was elevated at 33/1.5 on 12/09/2019. There are some features of the patient's laboratory profile that are consistent with COVID-19, therefore we cannot say that he does not have it, however, he does not meet current guidelines for testing for the SARS-CoV-2 virus, and he is not ill enough to require hospitalization. I have ordered a 2 g Mg-rider. 01/19/20 17:18 Test results discussed with the patient. I do not have an explanation for the patient's elevated WBC count, but with only 3% bandemia, no fever, clear chest x -ray with normal saturation for age on room air, and a normal urinalysis, the patient does not appear to have an infection. The patient's Mg-rider has nearly finished infusing. Once infused, the patient's nurse will ambulate the patient with his walker, and if he does well, he will be discharged home. The patient prefers to home. 01/19/20 18:47 Kesha JEWELL ambulated the patient with a walker after his Mg-rider finished infusing. The patient stated that he felt "pretty good" and that he felt well enough to go home, however, I then spoke to the patient, and he stated that he did not feel comfortable going home, and that he thinks it would be hazel to stay overnight. 01/19/20 19:[address] Morales. Because we have patients with COVID-19 in the ICU, and if this patient acquired COVID-19, it would be bad for him, she feels that the patient would be better off if he went home. This was discussed with the patient, who agreed. 01/19/20 20:[address] talk to [address] Morales again. Notified by Jose JEWELL that the patient is just too unsteady on his feet to discharge home. He will need to be placed into observation. 01/19/20 20:[address] Morales. She accepted the patient for placement into observation. She is currently performing a procedure on a patient in the ICU and will come by to evaluate the patient once she is finished. 01/20/20 20:22 Late entry: After admission, it was discovered that the patient has not been practicing social isolation, indeed, he has been driving around and socializing. His temperature had not been obtained by the staff at [facility] , because they were afraid to go and see the patient, fearing that he was at increased risk for acquiring COVID-19. Given this additional information, I believe this increases the likelihood that the patient's lab abnormalities are consistent with COVID-19. I discussed this with Dr. Morales, and recommended that she test the patient for COVID-19. Departure - Departure Time of Disposition: 20:47 Disposition: Refer to Observation Condition: Good Clinical Impression: Fall at home, Dens fracture with delayed healing, Generalized weakness - Discharge Information *PRESCRIPTION DRUG MONITORING PROGRAM REVIEWED*: Not Applicable *COPY OF PRESCRIPTION DRUG MONITORING REPORT IN PATIENT YANG: Not Applicable Sepsis Event Note - Evaluation Sepsis Screening Result: No Definite Risk - Focused Exam Date Exam was Performed: 01/20/20 Time Exam was Performed: 20:25
--- NOTE | 2020-01-19 15:02 | CT ---
CT cervical spine Technique: Multiple axial sections through the cervical spine were obtained. Reconstructed coronal and sagittal images were obtained. Comparison: Prior CT cervical spine study of 12/26/17. Findings: Dens fracture is seen. This was noted on prior exam which shows fracture widening by about 3.6 mm on current study which measured 2.0 mm on prior exam. Diffuse degenerative change is noted which is stable. No other acute abnormality is definitely appreciated. Scoliosis is noted. Impression: 1. Stable degenerative change throughout the cervical spine which has been described on previous cervical spine report. 2. Dens fracture with fracture line slightly increased from prior exam as noted above. 3. Scoliosis. 3. No other acute abnormality is appreciated. Diagnostic code #3 Study was dictated in MDT
--- NOTE | 2020-01-19 15:02 | CR ---
Chest: 2 views of the chest were obtained. Comparison: Prior chest x-ray of 04/22/19. Right shoulder prosthesis is noted. Heart size and mediastinum are normal. Lungs are clear with no acute parenchymal change. Several old healed rib fractures are noted. Degenerative change is scattered within the spine. Impression: 1. Findings as noted above. 2. Nothing acute is appreciated on 2 view chest x-ray. Diagnostic code #2 Study was dictated in MDT
[2020-01-19] MEDS ORDERED: Magnesium Sulfate/Water 2 GM in Premix Bag 1 BAG IV ONE (16:28)
--- NOTE | 2020-01-19 21:10 | PCM.HP.2 ---
H&P History of Present Illness - General Date of Service: 01/19/20 - History of Present Illness Initial Comments - Free Text/Narative: This is an 89 year old male who came to the ED after a fall this morning. As per patient he went to the restroom after which he went to get door for his when he suddenly felt unsteady, attempted to sit down but "couldn't make it " and fell down. He denies any head trauma, no palpitations, chest pain, dizziness, diaphoresis, headaches prior to fall. He denies any LOC, incontinence both bowel or urinary and involuntary movements , fall witnessed by . - Related Data Allergies/Adverse Reactions: Allergies Allergy/AdvReac Type Severity Reaction Status Date / Time acetaminophen [From [place]] Allergy Itching Verified 01/20/20 18:25 hydrocodone [[place]] Allergy Itching Verified 01/20/20 18:25 penicillin V Allergy Hives Verified 01/20/20 18:25 Home Medications: Home Meds Clopidogrel Bisulfate [Clopidogrel] 75 mg PO DAILY 04/12/15 [History] Diltiazem HCl [Diltiazem 24Hr ER] 120 mg PO DAILY 04/12/15 [History] Levothyroxine Sodium [Synthroid] 175 mcg PO DAILY 04/12/15 [History] Co Q-10 With [place] 3 1 tab PO DAILY 09/18/17 [History] Multivitamin [Multivitamins] 1 tab PO DAILY 09/18/17 [History] Acetaminophen [Tylenol] 650 mg PO Q4H PRN #30 tablet 09/27/17 [Rx] Docusate Sodium [Colace] 100 mg PO BID PRN cap 09/27/17 [Rx] Ferrous Sulfate 325 mg PO DAILY #30 tablet 09/27/17 [Rx] Metoprolol Tartrate [Lopressor] 25 mg PO Q12HR #60 tablet 09/27/17 [Rx] Past Medical History HEENT History: Reports: Hard of Hearing, Macular Degeneration Other HEENT History: BILATERAL SENSORINEURAL HEARING LOSS Cardiovascular History: Reports: Afib (paroxysmal), High Cholesterol, Hypertension, ID (06/26/1996) Other Cardiovascular History: ID WITH STENTS PLACED 2005 Respiratory History: Reports: None Other Respiratory History: COUGH, URI, DYSPNEA Gastrointestinal History: Reports: Pancreatitis Other Gastrointestinal History: ABDOMINAL DISTENSION Genitourinary History: Reports: Chronic Renal Insuffiency Musculoskeletal History: Reports: Fracture (C1,C2 fx) Neurological History: Reports: CVA Other Neuro History: DIZZINESS INTERMITTENTLY Psychiatric History: Reports: Depression Endocrine/Metabolic History: Reports: Hypothyroidism Other Endocrine/Metabolic History: HYPOTHYROIDISM, Hematologic History: Reports: None Immunologic History: Reports: None Oncologic (Cancer) History: Reports: None Dermatologic History: Reports: Eczema Other Dermatologic History: HX OF HAND LACERATION, PRURITIS, SEBORRHEIC DERMATITIS - Infectious Disease History Infectious Disease History: Reports: Chicken Pox, Measles, Mumps - Past Surgical History HEENT Surgical History: Reports: Cataract Surgery (bilateral), Tonsillectomy ( Nov 1957) Cardiovascular Surgical History: Reports: Coronary Artery Stent (x 1, 06/26/1996) GI Surgical History: Reports: Appendectomy, Cholecystectomy (2005), Hernia, Abdominal (x 2) Musculoskeletal Surgical History: Reports: Hip Replacement (bilateral), Knee Replacement (right), Shoulder Surgery (right, reverse arthroplasty) Social & Family History - Family History Family Medical History: Noncontributory - Tobacco Use Smoking Status *Q: Never Smoker - Caffeine Use Caffeine Use: Reports: Coffee Other Caffeine Use: 2-3 cups per day - Recreational Drug Use Recreational Drug Use: No - Living Situation & Occupation Living situation: Reports: ( at home), Assisted Living ([facility]) Occupation: Retired H&P Review of Systems - Review of Systems: Review Of Systems: See Below General: Reports: Malaise, Weakness. Denies: Fever, Chills, Fatigue, Night Sweats, Diaphoresis, Decreased Appetite, Weight Loss, Weight Gain HEENT: Denies: Contact Lenses, Dysphasia, Ear Pain, Eye Pain, Glasses, Headaches , Hearing Changes, Rhinitis, Post Nasal Drip, Sinus Congestion, Sore Throat, Vertigo, Visual Changes Pulmonary: Reports: Cough. Denies: Shortness of Breath, Wheezing, Sputum, Hemoptysis Cardiovascular: Denies: Chest Pain, Palpitations, Dyspnea on Exertion, Orthopnea , PND, Edema, Lightheadedness, Syncope Gastrointestinal: Denies: Abdominal Pain, Anorexia, Black Stool, Decreased Appetite, Distension, Flatus, Hematemesis, Hematochezia, Nausea, Vomiting Genitourinary: Reports: Incontinence. Denies: Dysuria, Frequency, Burning, Pain , Urgency Musculoskeletal: Denies: Joint Pain, Joint Swelling, Muscle Pain, Muscle Stiffness Psychiatric: Denies: Confusion, Depression, Mood Lability, Anxiety Neurological: Denies: Headache, Numbness, Paresthesia Exam - Exam Exam: See Below - Vital Signs Vital Signs: Last Vital Signs Temp 98.6 F 01/19/20 18:34 Pulse 105 H 01/19/20 18:34 Resp 25 H 01/19/20 18:34 BP 134/68 01/19/20 18:34 Pulse Ox 93 L 01/19/20 18:34 Orthostatic Blood Pressure [ 140/80 Sitting] Orthostatic Blood Pressure [ 141/71 Supine] - Exam Physical Exam Comments:: General Appearance: Alert, WD/WN, No Apparent Distress Eye Exam: Bilateral Eye: EOMI, Normal Inspection Ears: Normal External Exam, Normal Canal, Normal TMs, Hearing Loss Nose: Normal Inspection, Normal Mucosa, No Blood Throat/Mouth: Normal Inspection, Normal Lips, Normal Voice, No Airway Compromise Head: Atraumatic, Normocephalic Neck: Supple, Tender Midline (mild, inferior cervical spine). No: Lymphadenopathy (L), Lymphadenopathy (R) Respiratory/Chest: No Respiratory Distress, Lungs Clear, Normal Breath Sounds, No Accessory Muscle Use. No: Decreased Breath Sounds, Crackles, Rhonchi, Wheezing, Stridor, Prolonged Expiration Cardiovascular: Normal Peripheral Pulses, No Edema, No Gallop, No JVD, No Murmur , No Rub, Tachycardia (regular) Peripheral Pulses: 4+: Radial (L), Radial (R) GI/Abdominal: Normal Bowel Sounds, Soft, Non-Tender, No Organomegaly, No Distention, No Abnormal Bruit, No Mass (Male) Exam: Deferred Rectal (Males) Exam: Deferred Back Exam: Normal Inspection, Full Range of Motion, NT Extremities: Normal Inspection, Normal Range of Motion, No Pedal Edema, Normal Capillary Refill Neurological: Alert, Oriented, CN II-XII Intact, Normal Cognition, No Motor/ Sensory Deficits Psychiatric: Normal Affect Skin Exam: Warm, Dry, Intact, Normal Color, No Rash - Patient Data Result Diagrams: 01/20/20 06:00 01/20/20 06:00 Sepsis Event Note - Evaluation Sepsis Screening Result: No Definite Risk - Focused Exam Vital Signs: Vital Signs Temp Pulse Resp BP Pulse Ox 01/19/20 18:34 98.6 F 105 H 25 H 134/68 93 L 01/19/20 17:01 99.7 F 100 29 H 109/57 L 93 L 01/19/20 15:13 100.3 F 111 H 28 H 96 01/19/20 13:10 99.3 F 93 16 137/86 93 L Date Exam was Performed: 01/21/20 Time Exam was Performed: 08:57 - Problem List (1) Hypertension SNOMED Code(s): 31226363 ICD Code: I10 - ESSENTIAL (PRIMARY) HYPERTENSION Status: Acute Current Visit: Yes (2) Fall at home SNOMED Code(s): 35426354 ICD Code: W19.XXXA - UNSPECIFIED FALL, INITIAL ENCOUNTER; Y92.009 - UNSP PLACE IN UNSP NON-INSTITUT (PRIVATE) RESIDENCE PLACE Status: Acute Current Visit: Yes (3) Generalized weakness SNOMED Code(s): 81123525 ICD Code: R53.1 - WEAKNESS Status: Acute Current Visit: Yes (4) C1 cervical fracture SNOMED Code(s): 808361664 ICD Code: S12.000A - UNSP DISP FX OF FIRST CERVICAL VERTEBRA, INIT FOR CLOS FX Status: Acute Priority: Medium Current Visit: No Qualifiers: Encounter type: subsequent encounter Fracture type: closed Fracture morphology: posterior arch Fracture alignment: nondisplaced Fracture healing : with routine healing Qualified Code(s): S12.031D - Nondisplaced posterior arch fracture of first cervical vertebra, subsequent encounter for fracture with routine healing (5) C2 cervical fracture SNOMED Code(s): 495788679 ICD Code: S12.100A - UNSP DISP FX OF SECOND CERVICAL VERTEBRA, INIT FOR CLOS FX Status: Acute Priority: Medium Current Visit: No Qualifiers: Encounter type: subsequent encounter Fracture type: closed Fracture morphology: type II dens Fracture alignment: nondisplaced Fracture healing: with routine healing Qualified Code(s): S12.112D - Nondisplaced Type II dens fracture, subsequent encounter for fracture with routine healing (6) Afib SNOMED Code(s): 92031788 ICD Code: I48.91 - UNSPECIFIED ATRIAL FIBRILLATION Status: Chronic Priority: Medium Current Visit: No Qualifiers: Atrial fibrillation type: chronic (7) CKD (chronic kidney disease) stage 3, GFR 30-59 ml/min SNOMED Code(s): 509961467 ICD Code: N18.3 - CHRONIC KIDNEY DISEASE, STAGE 3 (MODERATE) Status: Chronic Priority: Medium Current Visit: No (8) Hypothyroid SNOMED Code(s): 94880698 ICD Code: E03.9 - HYPOTHYROIDISM, UNSPECIFIED Status: Chronic Priority: Medium Current Visit: No Qualifiers: Hypothyroidism type: unspecified Qualified Code(s): E03.9 - Hypothyroidism , unspecified (9) Anemia, normocytic normochromic SNOMED Code(s): 29901423 ICD Code: D64.9 - ANEMIA, UNSPECIFIED Status: Acute Current Visit: Yes (10) Hypomagnesemia SNOMED Code(s): 674807524 ICD Code: E83.42 - HYPOMAGNESEMIA Status: Acute Current Visit: Yes (11) Acute hypoxemic respiratory failure SNOMED Code(s): 614933747 ICD Code: J96.01 - ACUTE RESPIRATORY FAILURE WITH HYPOXIA Status: Acute Current Visit: Yes (12) Cough SNOMED Code(s): 29203699 ICD Code: R05 - COUGH Status: Acute Current Visit: Yes Problem List Initiated/Reviewed/Updated: Yes Assessment/Plan Comment:: DOA - Fall at home - Imaging in ED with fracture of C1-2--> Neurosurgery evaluated images and recommended neck brace due to possible old fracture as well as pain control - Non productive cough, intermittent for a couple of weeks, flu shot this year, denies sick contacts - Upon further investigation ED physician determined patient had been refusing social distancing and fever, this with leukocytosis and hypoxemia prompts r/o COVID PLAN BY PROBLEMS Fall at home Generalized weakness C1-2 cervical fracture - Pain control Acute hypoxemic respiratory failure Cough Leukocytosis - O2 supplementation as needed - COVID r/o - Monitor - Isolation CKD (chronic kidney disease) stage 3, GFR 30-59 ml/min. Hypomagnesemia Anemia, normocytic normochromic - Monitor urine output - Renally dosed medications - Continue Ed replacement of magnesium - Replace electrolytes as needed - Goal for transfusion Hb 7 Hypertension - Reconcile home medications once available. PROPHYLAXIS DVT- Compression stockings GI- not indicated CODE STATUS: FULL CODE DISPOSITION: Admitted to r/o COVID, O2 supplementation, monitorization and pain control. SOCIAL[place] , front wheel walker, life alert. - Mortality Measure Prognosis:: Good
[2020-01-19] MEDS ORDERED: Acetaminophen 325 MG/10.15 ML ML PO ONE (21:35)
[2020-01-19] MEDS ORDERED: Ondansetron 4 MG/2 ML SDV IVPUSH ONE (21:37)
[2020-01-19] MEDS ORDERED: Acetaminophen 325 MG Tab PO ONE (21:40)
[2020-01-19] MEDS ORDERED: Acetaminophen 325 MG Tab ONE (21:43)
--- NOTE | 2020-01-20 10:16 | PCM.PN ---
- General Info Date of Service: 01/20/20 Subjective Update: - Pain controlled - Tolerating diet - Magnesium normal - BP trend 96-126/57-95 - Tmax 99.9 - Awaiting COVID-19 test - Feels pretty good with no complaints Functional Status: Reports: Pain Controlled, Tolerating Diet, Ambulating, Urinating. Denies: New Symptoms - Review of Systems General: Denies: Fever, Weakness, Fatigue, Malaise, Chills HEENT: Reports: No Symptoms. Denies: Headaches, Sore Throat Pulmonary: Reports: No Symptoms. Denies: Shortness of Breath, Cough, Sputum, Wheezing Cardiovascular: Reports: No Symptoms. Denies: Chest Pain, Palpitations, Edema Gastrointestinal: Reports: No Symptoms. Denies: Abdominal Pain, Constipation, Diarrhea, Nausea, Vomiting Genitourinary: Reports: No Symptoms. Denies: Pain Musculoskeletal: Reports: No Symptoms Skin: Reports: No Symptoms. Denies: Cyanosis Neurological: Reports: No Symptoms. Denies: Confusion Psychiatric: Reports: No Symptoms - Patient Data Vitals - Most Recent: Last Vital Signs Temp 98.2 F 01/20/20 08:26 Pulse 75 01/20/20 08:26 Resp 20 01/20/20 08:26 BP 129/95 H 01/20/20 08:26 Pulse Ox 99 01/20/20 08:26 Orthostatic Blood Pressure [ 140/80 Sitting] Orthostatic Blood Pressure [ 141/71 Supine] Weight - Most Recent: 176 lb 9.6 oz I&O - Last 24 Hours: Intake & Output 01/19/20 01/20/20 01/20/20 22:59 06:59 14:59 Output Total 200 Balance -200 Lab Results Last 24 Hours: Laboratory Results - last 24 hr 01/19/20 01/19/20 01/19/20 Range/Units 14:38 14:38 14:38 WBC 20.65 H (4.23-9.07) K/mm3 RBC 4.10 L (4.63-6.08) M/mm3 Hgb 12.2 L (13.7-17.5) gm/dl Hct 36.6 L (40.1-51.0) % MCV 89.3 (79.0-92.2) fl MCH 29.8 (25.7-32.2) pg MCHC 33.3 (32.2-35.5) g/dl RDW Std Deviation 43.2 (35.1-43.9) fL Plt Count 205 (163-337) K/mm3 MPV 9.8 (9.4-12.3) fl Neut % (Auto) (34.0-67.9) % Lymph % (Auto) (21.8-53.1) % [place] % (Auto) (5.3-12.2) % Eos % (Auto) (0.8-7.0) Baso % (Auto) (0.1-1.2) % Neut # (Auto) (1.78-5.38) K/mm3 Lymph # (Auto) (1.32-3.57) K/mm3 [place] # (Auto) (0.30-0.82) K/mm3 Eos # (Auto) (0.04-0.54) K/mm3 Baso # (Auto) (0.01-0.08) K/mm3 Neutrophils % (Manual) 87 H (40-60) % Band Neutrophils % 3 (0-10) % Lymphocytes % (Manual) 6 L (20-40) % Atypical Lymphs % 0 % Monocytes % (Manual) 4 (2-10) % Eosinophils % (Manual) 0 L (0.8-7.0) % Basophils % (Manual) 0 L (0.2-1.2) Manual Slide Review Platelet Estimate Adequate RBC Morph Comment Normal Sodium 137 (136-145) mEq/L Potassium 4.4 (3.5-5.1) mEq/L Chloride 99 (98-107) mEq/L Carbon Dioxide 23 (21-32) mEq/L Anion Gap 19.4 H (5-15) BUN 27 H (7-18) mg/dL Creatinine 1.5 H (0.7-1.3) mg/dL Est Cr Clr Drug Dosing TNP Estimated GFR (MDRD) 44 (>60) mL/min BUN/Creatinine Ratio 18.0 (14-18) Glucose 159 H (83-115) mg/dL Calcium 9.4 (8.5-10.1) mg/dL Phosphorus (2.6-4.7) mg/dL Magnesium 1.6 L (1.8-2.4) mg/dl Ferritin (26-388) ng/ml Total Bilirubin 2.1 H (0.2-1.0) mg/dL AST 14 L (15-37) U/L ALT 30 (16-63) U/L Alkaline Phosphatase 57 (46-116) U/L Lactate Dehydrogenase 140 (85-227) U/L Troponin I < 0.017 (0.00-0.056) ng/mL C-Reactive Protein 4.8 H* (<1.0) mg/dL Total Protein 7.8 (6.4-8.2) g/dl Albumin 4.0 (3.4-5.0) g/dl Globulin 3.8 gm/dL Albumin/Globulin Ratio 1.1 (1-2) MRSA (PCR) 01/19/20 01/19/20 01/20/20 Range/Units 14:38 23:30 06:00 WBC 12.66 H (4.23-9.07) K/mm3 RBC 3.37 L (4.63-6.08) M/mm3 Hgb 9.8 L D (13.7-17.5) gm/dl Hct 30.3 L (40.1-51.0) % MCV 89.9 (79.0-92.2) fl MCH 29.1 (25.7-32.2) pg MCHC 32.3 (32.2-35.5) g/dl RDW Std Deviation 43.4 (35.1-43.9) fL Plt Count 149 L (163-337) K/mm3 MPV 10.0 (9.4-12.3) fl Neut % (Auto) 82.6 H (34.0-67.9) % Lymph % (Auto) 7.1 L (21.8-53.1) % [place] % (Auto) 9.9 (5.3-12.2) % Eos % (Auto) 0.1 L (0.8-7.0) Baso % (Auto) 0.1 (0.1-1.2) % Neut # (Auto) 10.47 H (1.78-5.38) K/mm3 Lymph # (Auto) 0.90 L (1.32-3.57) K/mm3 [place] # (Auto) 1.25 H (0.30-0.82) K/mm3 Eos # (Auto) 0.01 L (0.04-0.54) K/mm3 Baso # (Auto) 0.01 (0.01-0.08) K/mm3 Neutrophils % (Manual) (40-60) % Band Neutrophils % (0-10) % Lymphocytes % (Manual) (20-40) % Atypical Lymphs % % Monocytes % (Manual) (2-10) % Eosinophils % (Manual) (0.8-7.0) % Basophils % (Manual) (0.2-1.2) Manual Slide Review Normal smear Platelet Estimate RBC Morph Comment Sodium (136-145) mEq/L Potassium (3.5-5.1) mEq/L Chloride (98-107) mEq/L Carbon Dioxide (21-32) mEq/L Anion Gap (5-15) BUN (7-18) mg/dL Creatinine (0.7-1.3) mg/dL Est Cr Clr Drug Dosing Estimated GFR (MDRD) (>60) mL/min BUN/Creatinine Ratio (14-18) Glucose (83-115) mg/dL Calcium (8.5-10.1) mg/dL Phosphorus (2.6-4.7) mg/dL Magnesium (1.8-2.4) mg/dl Ferritin 562 H (26-388) ng/ml Total Bilirubin (0.2-1.0) mg/dL AST (15-37) U/L ALT (16-63) U/L Alkaline Phosphatase (46-116) U/L Lactate Dehydrogenase (85-227) U/L Troponin I (0.00-0.056) ng/mL C-Reactive Protein (<1.0) mg/dL Total Protein (6.4-8.2) g/dl Albumin (3.4-5.0) g/dl Globulin gm/dL Albumin/Globulin Ratio (1-2) MRSA (PCR) Negative 01/20/20 Range/Units 06:00 WBC (4.23-9.07) K/mm3 RBC (4.63-6.08) M/mm3 Hgb (13.7-17.5) gm/dl Hct (40.1-51.0) % MCV (79.0-92.2) fl MCH (25.7-32.2) pg MCHC (32.2-35.5) g/dl RDW Std Deviation (35.1-43.9) fL Plt Count (163-337) K/mm3 MPV (9.4-12.3) fl Neut % (Auto) (34.0-67.9) % Lymph % (Auto) (21.8-53.1) % [place] % (Auto) (5.3-12.2) % Eos % (Auto) (0.8-7.0) Baso % (Auto) (0.1-1.2) % Neut # (Auto) (1.78-5.38) K/mm3 Lymph # (Auto) (1.32-3.57) K/mm3 [place] # (Auto) (0.30-0.82) K/mm3 Eos # (Auto) (0.04-0.54) K/mm3 Baso # (Auto) (0.01-0.08) K/mm3 Neutrophils % (Manual) (40-60) % Band Neutrophils % (0-10) % Lymphocytes % (Manual) (20-40) % Atypical Lymphs % % Monocytes % (Manual) (2-10) % Eosinophils % (Manual) (0.8-7.0) % Basophils % (Manual) (0.2-1.2) Manual Slide Review Platelet Estimate RBC Morph Comment Sodium 136 (136-145) mEq/L Potassium 4.6 (3.5-5.1) mEq/L Chloride 102 (98-107) mEq/L Carbon Dioxide 26 (21-32) mEq/L Anion Gap 12.6 (5-15) BUN 34 H (7-18) mg/dL Creatinine 2.0 H (0.7-1.3) mg/dL Est Cr Clr Drug Dosing 26.67 Estimated GFR (MDRD) 32 (>60) mL/min BUN/Creatinine Ratio 17.0 (14-18) Glucose 131 H (83-115) mg/dL Calcium 8.8 (8.5-10.1) mg/dL Phosphorus 4.6 (2.6-4.7) mg/dL Magnesium 2.2 (1.8-2.4) mg/dl Ferritin (26-388) ng/ml Total Bilirubin (0.2-1.0) mg/dL AST (15-37) U/L ALT (16-63) U/L Alkaline Phosphatase (46-116) U/L Lactate Dehydrogenase (85-227) U/L Troponin I (0.00-0.056) ng/mL C-Reactive Protein (<1.0) mg/dL Total Protein (6.4-8.2) g/dl Albumin (3.4-5.0) g/dl Globulin gm/dL Albumin/Globulin Ratio (1-2) MRSA (PCR) Med Orders - Current: Current Medications Discontinued Medications Acetaminophen (Tylenol) 975 mg PO ONETIME ONE Stop: 01/19/20 21:36 Last Admin: 01/19/20 21:41 Dose: Not Given Acetaminophen (Tylenol) 975 mg PO NOW ONE Stop: 01/19/20 21:41 Last Admin: 01/19/20 21:48 Dose: 975 mg Acetaminophen (Tylenol) Confirm Administered Dose 975 mg .ROUTE .STK-MED ONE Stop: 01/19/20 21:44 Last Admin: 01/19/20 21:48 Dose: Not Given Magnesium Sulfate 2 gm/ Premix 50 mls @ 50 mls/hr IV ONETIME ONE Stop: 01/19/20 17:27 Last Admin: 01/19/20 16:56 Dose: 50 mls/hr Ondansetron HCl (Zofran) 4 mg IVPUSH ONETIME ONE Stop: 01/19/20 21:38 Last Admin: 01/19/20 21:47 Dose: 4 mg - Exam Quality Assessment: DVT Prophylaxis. No: Supplemental Oxygen General: Alert, Oriented, Cooperative, No Acute Distress HEENT: Pupils Equal, Pupils Reactive, Mucous Membr. Moist/[place] Neck: Supple, Trachea Midline Lungs: Clear to Auscultation, Normal Respiratory Effort Cardiovascular: Regular Rate, Regular Rhythm GI/Abdominal Exam: Normal Bowel Sounds, Soft, Non-Tender, No Distention (Male) Exam: Deferred Back Exam: Normal Inspection, Full Range of Motion Extremities: Normal Inspection, Normal Range of Motion, No Pedal Edema Skin: Warm, Dry, Intact Neurological: No New Focal Deficit Psy/Mental Status: Alert, Normal Affect, Normal Mood Sepsis Event Note - Evaluation Sepsis Screening Result: No Definite Risk - Focused Exam Vital Signs: Vital Signs Temp Pulse Resp BP Pulse Ox 01/20/20 08:26 98.2 F 75 20 129/95 H 99 01/20/20 03:57 96/45 L 01/20/20 03:56 98.1 F 80 24 H 98/44 L 98 01/19/20 22:56 100.2 F 92 28 H 129/57 L 95 Date Exam was Performed: 01/25/20 Time Exam was Performed: 07:55 - Problem List & Annotations (1) Acute hypoxemic respiratory failure SNOMED Code(s): 331189404 Code(s): J96.01 - ACUTE RESPIRATORY FAILURE WITH HYPOXIA Status: Acute Priority: High (2) Anemia, normocytic normochromic SNOMED Code(s): 20984781 Code(s): D64.9 - ANEMIA, UNSPECIFIED Status: Acute Priority: High (3) C1 cervical fracture SNOMED Code(s): 303142398 Code(s): S12.000A - UNSP DISP FX OF FIRST CERVICAL VERTEBRA, INIT FOR CLOS FX Status: Acute Priority: Medium Qualifiers: Encounter type: subsequent encounter Fracture type: closed Fracture morphology: posterior arch Fracture alignment: nondisplaced Fracture healing : with routine healing Qualified Code(s): S12.031D - Nondisplaced posterior arch fracture of first cervical vertebra, subsequent encounter for fracture with routine healing (4) C2 cervical fracture SNOMED Code(s): 869619078 Code(s): S12.100A - UNSP DISP FX OF SECOND CERVICAL VERTEBRA, INIT FOR CLOS FX Status: Acute Priority: Medium Qualifiers: Encounter type: subsequent encounter Fracture type: closed Fracture morphology: type II dens Fracture alignment: nondisplaced Fracture healing: with routine healing Qualified Code(s): S12.112D - Nondisplaced Type II dens fracture, subsequent encounter for fracture with routine healing (5) Cough SNOMED Code(s): 97871107 Code(s): R05 - COUGH Status: Acute Priority: High (6) Fall at home SNOMED Code(s): 20186918 Code(s): W19.XXXA - UNSPECIFIED FALL, INITIAL ENCOUNTER; Y92.009 - UNSP PLACE IN UNSP NON-INSTITUT (PRIVATE) RESIDENCE PLACE Status: Acute Priority: High Qualifiers: Encounter type: initial encounter Qualified Code(s): W19.XXXA - Unspecified fall, initial encounter; Y92.009 - Unspecified place in unspecified non-institutional (private) residence as the place of occurrence of the external cause (7) Generalized weakness SNOMED Code(s): 72316078 Code(s): R53.1 - WEAKNESS Status: Acute Priority: High (8) Hypertension SNOMED Code(s): 43134393 Code(s): I10 - ESSENTIAL (PRIMARY) HYPERTENSION Status: Chronic Priority : Medium Qualifiers: Hypertension type: unspecified Qualified Code(s): I10 - Essential (primary ) hypertension (9) Hypomagnesemia SNOMED Code(s): 151592991 Code(s): E83.42 - HYPOMAGNESEMIA Status: Acute Priority: High (10) Afib SNOMED Code(s): 23152030 Code(s): I48.91 - UNSPECIFIED ATRIAL FIBRILLATION Status: Chronic Priority: Medium Qualifiers: Atrial fibrillation type: unspecified Qualified Code(s): I48.91 - Unspecified atrial fibrillation (11) CKD (chronic kidney disease) stage 3, GFR 30-59 ml/min SNOMED Code(s): 686046346 Code(s): N18.3 - CHRONIC KIDNEY DISEASE, STAGE 3 (MODERATE) Status: Chronic Priority: Medium (12) Hypothyroid SNOMED Code(s): 05278400 Code(s): E03.9 - HYPOTHYROIDISM, UNSPECIFIED Status: Chronic Priority: Medium Qualifiers: Hypothyroidism type: unspecified Qualified Code(s): E03.9 - Hypothyroidism , unspecified - Problem List Review Problem List Initiated/Reviewed/Updated: Yes - Plan Plan:: DOA - Fall at home - Imaging in ED with fracture of C1-2--> Neurosurgery evaluated images and recommended neck brace due to possible old fracture as well as pain control - Non productive cough, intermittent for a couple of weeks, flu shot this year, denies sick contacts - Upon further investigation ED physician determined patient had been refusing social distancing and fever, this with leukocytosis and hypoxemia prompts r/o COVID PLAN BY PROBLEMS Fall at home Generalized weakness C1-2 cervical fracture - Pain control Acute hypoxemic respiratory failure Cough Leukocytosis - O2 supplementation as needed - COVID r/o - Monitor - Isolation CKD (chronic kidney disease) stage 3, GFR 30-59 ml/min. Hypomagnesemia Anemia, normocytic normochromic - Monitor urine output - Renally dosed medications - Continue Ed replacement of magnesium - Replace electrolytes as needed - Goal for transfusion Hb 7 Hypertension - Reconcile home medications once available. PROPHYLAXIS DVT- Compression stockings GI- not indicated CODE STATUS: FULL CODE DISPOSITION: Admitted to r/o COVID, O2 supplementation, monitorization and pain control. SOCIAL: [place] with , front wheel walker, life alert.
[2020-01-20] MEDS: Lactated Ringers 1,000 ML IV SCH (17:52)
[2020-01-21] MEDS: Lactated Ringers 1,000 ML IV SCH (07:31)
--- NOTE | 2020-01-21 15:39 | PCM.PN ---
- General Info Date of Service: 01/21/20 Subjective Update: Feeling OK BM yesterday Slept Ok Tolerating diet - Patient Data Vitals - Most Recent: Last Vital Signs Temp 97.9 F 01/21/20 13:30 Pulse 70 01/21/20 13:30 Resp 20 01/21/20 13:30 BP 146/119 H 01/21/20 13:30 Pulse Ox 97 01/21/20 13:30 Weight - Most Recent: 79.968 kg - Exam Physical Findings Comments:: General Appearance: Alert, WD/WN, No Apparent Distress Eye Exam: Bilateral Eye: EOMI, Normal Inspection Ears: Normal External Exam, Normal Canal, Normal TMs, Hearing Loss Nose: Normal Inspection, Normal Mucosa, No Blood Throat/Mouth: Normal Inspection, Normal Lips, Normal Voice, No Airway Compromise Head: Atraumatic, Normocephalic Neck: Supple, Tender Midline (mild, inferior cervical spine). No: Lymphadenopathy (L), Lymphadenopathy (R) Respiratory/Chest: No Respiratory Distress, Lungs Clear, Normal Breath Sounds, No Accessory Muscle Use. No: Decreased Breath Sounds, Crackles, Rhonchi, Wheezing, Stridor, Prolonged Expiration Cardiovascular: Normal Peripheral Pulses, No Edema, No Gallop, No JVD, No Murmur , No Rub, Tachycardia (regular) Peripheral Pulses: 4+: Radial (L), Radial (R) GI/Abdominal: Normal Bowel Sounds, Soft, Non-Tender, No Organomegaly, No Distention, No Abnormal Bruit, No Mass (Male) Exam: Deferred Rectal (Males) Exam: Deferred Back Exam: Normal Inspection, Full Range of Motion, NT Extremities: Normal Inspection, Normal Range of Motion, No Pedal Edema, Normal Capillary Refill Neurological: Alert, Oriented, CN II-XII Intact, Normal Cognition, No Motor/ Sensory Deficits Psychiatric: Normal Affect Skin Exam: Warm, Dry, Intact, Normal Color, No Rash Sepsis Event Note - Evaluation Sepsis Screening Result: No Definite Risk - Focused Exam Vital Signs: Vital Signs Temp Pulse Resp BP Pulse Ox 01/21/20 13:30 97.9 F 70 20 146/119 H 97 01/21/20 07:34 98.1 F 67 21 H 132/74 94 L 01/21/20 04:06 98.4 F 71 15 132/84 95 Date Exam was Performed: 01/21/20 Time Exam was Performed: 22:08 - Problem List & Annotations (1) Hypertension SNOMED Code(s): 86769059 Code(s): I10 - ESSENTIAL (PRIMARY) HYPERTENSION Status: Acute Current Visit: Yes (2) Fall at home SNOMED Code(s): 12384484 Code(s): W19.XXXA - UNSPECIFIED FALL, INITIAL ENCOUNTER; Y92.009 - UNSP PLACE IN UNSP NON-INSTITUT (PRIVATE) RESIDENCE PLACE Status: Acute Current Visit: Yes (3) Generalized weakness SNOMED Code(s): 81213405 Code(s): R53.1 - WEAKNESS Status: Acute Current Visit: Yes (4) C1 cervical fracture SNOMED Code(s): 429110466 Code(s): S12.000A - UNSP DISP FX OF FIRST CERVICAL VERTEBRA, INIT FOR CLOS FX Status: Acute Priority: Medium Current Visit: No Qualifiers: Encounter type: subsequent encounter Fracture type: closed Fracture morphology: posterior arch Fracture alignment: nondisplaced Fracture healing : with routine healing Qualified Code(s): S12.031D - Nondisplaced posterior arch fracture of first cervical vertebra, subsequent encounter for fracture with routine healing (5) C2 cervical fracture SNOMED Code(s): 674995033 Code(s): S12.100A - UNSP DISP FX OF SECOND CERVICAL VERTEBRA, INIT FOR CLOS FX Status: Acute Priority: Medium Current Visit: No Qualifiers: Encounter type: subsequent encounter Fracture type: closed Fracture morphology: type II dens Fracture alignment: nondisplaced Fracture healing: with routine healing Qualified Code(s): S12.112D - Nondisplaced Type II dens fracture, subsequent encounter for fracture with routine healing (6) Afib SNOMED Code(s): 51333675 Code(s): I48.91 - UNSPECIFIED ATRIAL FIBRILLATION Status: Chronic Priority: Medium Current Visit: No Qualifiers: Atrial fibrillation type: chronic (7) CKD (chronic kidney disease) stage 3, GFR 30-59 ml/min SNOMED Code(s): 237387501 Code(s): N18.3 - CHRONIC KIDNEY DISEASE, STAGE 3 (MODERATE) Status: Chronic Priority: Medium Current Visit: No (8) Hypothyroid SNOMED Code(s): 47062366 Code(s): E03.9 - HYPOTHYROIDISM, UNSPECIFIED Status: Chronic Priority: Medium Current Visit: No Qualifiers: Hypothyroidism type: unspecified Qualified Code(s): E03.9 - Hypothyroidism , unspecified (9) Anemia, normocytic normochromic SNOMED Code(s): 34950625 Code(s): D64.9 - ANEMIA, UNSPECIFIED Status: Acute Current Visit: Yes (10) Hypomagnesemia SNOMED Code(s): 869462037 Code(s): E83.42 - HYPOMAGNESEMIA Status: Acute Current Visit: Yes (11) Acute hypoxemic respiratory failure SNOMED Code(s): 350044632 Code(s): J96.01 - ACUTE RESPIRATORY FAILURE WITH HYPOXIA Status: Acute Current Visit: Yes (12) Cough SNOMED Code(s): 21833826 Code(s): R05 - COUGH Status: Acute Current Visit: Yes - Problem List Review Problem List Initiated/Reviewed/Updated: Yes - Plan Plan:: DOA - Fall at home - Imaging in ED with fracture of C1-2--> Neurosurgery evaluated images and recommended neck brace due to possible old fracture as well as pain control - Non productive cough, intermittent for a couple of weeks, flu shot this year, denies sick contacts - Upon further investigation ED physician determined patient had been refusing social distancing and fever, this with leukocytosis and hypoxemia prompts r/o COVID DAY 1 - Pain controlled - Tolerating diet - Magnesium normal - BP trend 96-126/57-95 - Tmax 99.9 - COVID negative PLAN BY PROBLEMS Fall at home Generalized weakness C1-2 cervical fracture - Pain control Acute hypoxemic respiratory failure, resolved Cough Leukocytosis Negative COVID - O2 supplementation as needed CKD (chronic kidney disease) stage 3, GFR 30-59 ml/min. Hypomagnesemia, resolved Anemia, normocytic normochromic - Monitor urine output - Renally dosed medications - Continue Ed replacement of magnesium - Replace electrolytes as needed - Goal for transfusion Hb 7 Hypertension - Continue home metoprolol and diltiazem PROPHYLAXIS DVT- Compression stockings GI- not indicated CODE STATUS: FULL CODE DISPOSITION: Will remain admitted, pending PT/OT evaluation SOCIAL: [place] , front wheel walker, life alert.
[2020-01-21] MEDS: Clopidogrel 75 MG Tab PO SCH (20:09)
[2020-01-21] MEDS: Metoprolol Tartrate 25 MG Tab PO SCH (20:09)
[2020-01-22] MEDS: Clopidogrel 75 MG Tab PO SCH (08:11)
[2020-01-22] MEDS: Metoprolol Tartrate 25 MG Tab PO SCH (08:11)
[2020-01-22] MEDS ORDERED: Diltiazem 120 MG Cap.CD PO SCH (09:00)
--- NOTE | 2020-01-22 11:35 | PCM.DCSUM1 ---
Discharge Summary - Hospital Course HPI Initial Comments: This is an 89 year old male who came to the ED after a fall this morning. As per patient he went to the restroom after which he went to get door for his when he suddenly felt unsteady, attempted to sit down but "couldn't make it " and fell down. He denies any head trauma, no palpitations, chest pain, dizziness, diaphoresis, headaches prior to fall. He denies any LOC, incontinence both bowel or urinary and involuntary movements , fall witnessed by . - Discharge Data Discharge Date: 01/22/20 Discharge Disposition: Home, Self-Care 01 Condition: Good - Referral to Home Health Primary Care Physician: Yumiko Nichols PA-C - Discharge Diagnosis/Problem(s) (1) Hypertension SNOMED Code(s): 23592607 ICD Code: I10 - ESSENTIAL (PRIMARY) HYPERTENSION Status: Acute Current Visit: Yes (2) Fall at home SNOMED Code(s): 56414214 ICD Code: W19.XXXA - UNSPECIFIED FALL, INITIAL ENCOUNTER; Y92.009 - UNSP PLACE IN UNSP NON-INSTITUT (PRIVATE) RESIDENCE PLACE Status: Acute Current Visit: Yes (3) Generalized weakness SNOMED Code(s): 95395669 ICD Code: R53.1 - WEAKNESS Status: Acute Current Visit: Yes (4) C1 cervical fracture SNOMED Code(s): 695884239 ICD Code: S12.000A - UNSP DISP FX OF FIRST CERVICAL VERTEBRA, INIT FOR CLOS FX Status: Acute Priority: Medium Current Visit: No Qualifiers: Encounter type: subsequent encounter Fracture type: closed Fracture morphology: posterior arch Fracture alignment: nondisplaced Fracture healing : with routine healing Qualified Code(s): S12.031D - Nondisplaced posterior arch fracture of first cervical vertebra, subsequent encounter for fracture with routine healing (5) C2 cervical fracture SNOMED Code(s): 190228553 ICD Code: S12.100A - UNSP DISP FX OF SECOND CERVICAL VERTEBRA, INIT FOR CLOS FX Status: Acute Priority: Medium Current Visit: No Qualifiers: Encounter type: subsequent encounter Fracture type: closed Fracture morphology: type II dens Fracture alignment: nondisplaced Fracture healing: with routine healing Qualified Code(s): S12.112D - Nondisplaced Type II dens fracture, subsequent encounter for fracture with routine healing (6) Afib SNOMED Code(s): 12476205 ICD Code: I48.91 - UNSPECIFIED ATRIAL FIBRILLATION Status: Chronic Priority: Medium Current Visit: No Qualifiers: Atrial fibrillation type: chronic (7) CKD (chronic kidney disease) stage 3, GFR 30-59 ml/min SNOMED Code(s): 135486093 ICD Code: N18.3 - CHRONIC KIDNEY DISEASE, STAGE 3 (MODERATE) Status: Chronic Priority: Medium Current Visit: No (8) Hypothyroid SNOMED Code(s): 80238052 ICD Code: E03.9 - HYPOTHYROIDISM, UNSPECIFIED Status: Chronic Priority: Medium Current Visit: No Qualifiers: Hypothyroidism type: unspecified Qualified Code(s): E03.9 - Hypothyroidism , unspecified (9) Anemia, normocytic normochromic SNOMED Code(s): 79953209 ICD Code: D64.9 - ANEMIA, UNSPECIFIED Status: Acute Current Visit: Yes (10) Hypomagnesemia SNOMED Code(s): 845071270 ICD Code: E83.42 - HYPOMAGNESEMIA Status: Acute Current Visit: Yes (11) Acute hypoxemic respiratory failure SNOMED Code(s): 747252625 ICD Code: J96.01 - ACUTE RESPIRATORY FAILURE WITH HYPOXIA Status: Acute Current Visit: Yes (12) Cough SNOMED Code(s): 63724164 ICD Code: R05 - COUGH Status: Acute Current Visit: Yes - Patient Summary/Data Consults: Consultations 01/21/20 11:00 OT Evaluation and Treatment [CONS] Routine PT Evaluation and Treatment [CONS] Routine Hospital Course: DOA - Fall at home - Imaging in ED with fracture of C1-2--> Neurosurgery evaluated images and recommended neck brace due to possible old fracture as well as pain control - Non productive cough, intermittent for a couple of weeks, flu shot this year, denies sick contacts - Upon further investigation ED physician determined patient had been refusing social distancing and fever, this with leukocytosis and hypoxemia prompts r/o COVID DAY 1 - Pain controlled - Tolerating diet - Magnesium normal - BP trend 96-126/57-95 - Tmax 99.9 - COVID negative DAY 2 - Evaluate by PT who is recommending discharge to [facility] with outpatient physical therapy for balance - Dietary recommending patient continue taking high protein custard once a day - Ambulating, back at baseline - Alert and oriented - No pain complaints - VS stable - Compression stockings in place - Patient Instructions Diet: Heart Healthy Diet Diet, Other: high protein custard daily Activity: As Tolerated Other/Special Instructions: Compression stocking use - Discharge Plan *PRESCRIPTION DRUG MONITORING PROGRAM REVIEWED*: Not Applicable *COPY OF PRESCRIPTION DRUG MONITORING REPORT IN PATIENT YANG: Not Applicable Home Medications: Home Meds Clopidogrel Bisulfate [Clopidogrel] 75 mg PO DAILY 04/12/15 [History] Diltiazem HCl [Diltiazem 24Hr ER] 120 mg PO DAILY 04/12/15 [History] Levothyroxine Sodium [Synthroid] 175 mcg PO DAILY 04/12/15 [History] Co Q-10 With [place] 3 1 tab PO DAILY 09/18/17 [History] Multivitamin [Multivitamins] 1 tab PO DAILY 09/18/17 [History] Acetaminophen [Tylenol] 650 mg PO Q4H PRN #30 tablet 09/27/17 [Rx] Docusate Sodium [Colace] 100 mg PO BID PRN cap 09/27/17 [Rx] Ferrous Sulfate 325 mg PO DAILY #30 tablet 09/27/17 [Rx] Metoprolol Tartrate [Lopressor] 25 mg PO Q12HR #60 tablet 09/27/17 [Rx] Patient Handouts: Fall Prevention in Hospitals, Adult Forms: ED Department Discharge Referrals: Valentina Dimas NP [Nurse Practitioner] - Dale Richmond MD [Ordering Only Provider] - - Discharge Summary/Plan Comment DC Time >30 min.: Yes - General Info Date of Service: 01/22/20 Subjective Update: Feeling ok Back at baseline On Room Air Slept OK BM 2 days ago Tolerating diet - Patient Data Vitals - Most Recent: Last Vital Signs Temp 98.5 F 01/21/20 20:00 Pulse 62 01/22/20 08:11 Resp 24 H 01/21/20 20:00 BP 145/98 H 01/22/20 08:11 Pulse Ox 98 01/21/20 19:17 Weight - Most Recent: 80.739 kg - Exam Physical Findings Comments:: General Appearance: Alert, WD/WN, No Apparent Distress Eye Exam: Bilateral Eye: EOMI, Normal Inspection Ears: Normal External Exam, Normal Canal, Normal TMs, Hearing Loss Nose: Normal Inspection, Normal Mucosa, No Blood Throat/Mouth: Normal Inspection, Normal Lips, Normal Voice, No Airway Compromise Head: Atraumatic, Normocephalic Neck: Supple, Tender Midline (mild, inferior cervical spine). No: Lymphadenopathy (L), Lymphadenopathy (R) Respiratory/Chest: No Respiratory Distress, Lungs Clear, Normal Breath Sounds, No Accessory Muscle Use. No: Decreased Breath Sounds, Crackles, Rhonchi, Wheezing, Stridor, Prolonged Expiration Cardiovascular: Normal Peripheral Pulses, No Edema, No Gallop, No JVD, No Murmur , No Rub, Tachycardia (regular) Peripheral Pulses: 4+: Radial (L), Radial (R) GI/Abdominal: Normal Bowel Sounds, Soft, Non-Tender, No Organomegaly, No Distention, No Abnormal Bruit, No Mass (Male) Exam: Deferred Rectal (Males) Exam: Deferred Back Exam: Normal Inspection, Full Range of Motion, NT Extremities: Normal Inspection, Normal Range of Motion, No Pedal Edema, Normal Capillary Refill Neurological: Alert, Oriented, CN II-XII Intact, Normal Cognition, No Motor/ Sensory Deficits Psychiatric: Normal Affect Skin Exam: Warm, Dry, Intact, Normal Color, No Rash
[2020-01-22 13:53] VITALS: BP 117/74; PULSE 66
== END 2020-01-22 13:35 | disposition home or self-care (01) | DRG 559 ==
LOC: JD.ED 13:02 → JD.MS 21:13 → OBSVTOIN 01-21 11:07 → JD.MS 01-22 00:21
PROVIDERS: ADMIT Internal Medicine; ATTEND Internal Medicine
DX: S12.031D Nondisplaced posterior arch fracture of first cervical vertebra, subsequent encounter for fracture with routine healing (principal); S12.000D Unspecified displaced fracture of first cervical vertebra, subsequent encounter for fracture with routine healing; J96.01 Acute respiratory failure with hypoxia; W19.XXXA Unspecified fall, initial encounter; R53.1 Weakness; S12.112D Nondisplaced Type II dens fracture, subsequent encounter for fracture with routine healing; N18.3 Chronic kidney disease, stage 3 (moderate); E03.9 Hypothyroidism, unspecified; D64.9 Anemia, unspecified; E83.42 Hypomagnesemia; Z20.828 Contact with and (suspected) exposure to other viral communicable diseases; H90.3 Sensorineural hearing loss, bilateral; H35.30 Unspecified macular degeneration; I48.0 Paroxysmal atrial fibrillation; E78.00 Pure hypercholesterolemia, unspecified; I12.9 Hypertensive chronic kidney disease with stage 1 through stage 4 chronic kidney disease, or unspecified chronic kidney disease; I25.2 Old myocardial infarction; Z95.5 Presence of coronary angioplasty implant and graft; Z86.73 Personal history of transient ischemic attack (TIA), and cerebral infarction without residual deficits; F32.9 Major depressive disorder, single episode, unspecified; Z98.42 Cataract extraction status, left eye; Z98.41 Cataract extraction status, right eye; Z90.49 Acquired absence of other specified parts of digestive tract; Z96.643 Presence of artificial hip joint, bilateral; Z90.89 Acquired absence of other organs; Z96.651 Presence of right artificial knee joint; W01.10XA Fall on same level from slipping, tripping and stumbling with subsequent striking against unspecified object, initial encounter; Z96.611 Presence of right artificial shoulder joint; Z88.0 Allergy status to penicillin; Z88.6 Allergy status to analgesic agent; Z88.5 Allergy status to narcotic agent; Z79.02 Long term (current) use of antithrombotics/antiplatelets; Z79.890 Hormone replacement therapy; Z79.899 Other long term (current) drug therapy
CPT/HCPCS: 36415 ×2; 71046; 72125; 80048; 80053; 82728; 83615; 83735 ×2; 84100; 84484; 85007; 85025; 85027; 86140; 87641; 93005; 96365; 96375; 99285; A9270; J2405; J3475; J7120 ×2; U0002; 93010; 96361; 97110-GO; 97110-GP; 97116-GP; 97161-GP; 97165-GO; 97530-GO; 97535-GO; G0378